=== PATIENT | male | born 1940 | race Caucasian/White ===

== ENCOUNTER 2018-03-26 07:55 | Day surgery (SDC) | payer MEDICARE, BC, OTHER ==
[2018-03-26] MEDS ORDERED: Midazolam* 1 MG/ML 2 ML VIAL (2 MG) ONE (09:26)
[2018-03-26] MEDS ORDERED: Cyclopentolate 1% OPTH.SOL* 2 ML BTL ONE (09:54)
[2018-03-26] MEDS ORDERED: Neomycin/Polymy/Dex OPTH.SUSP* MAXITROL 0.1% 5 ML ONE (09:54)
[2018-03-26] MEDS ORDERED: Lidocaine 2% EPI 1:200000 MPF*10-20 ML VIAL ONE (09:54)
[2018-03-26] MEDS ORDERED: Ketorolac 0.5% OPHTH (NF) 0.5 % 5 ML BTL ONE (09:54)
[2018-03-26] MEDS ORDERED: Phenylephrine 2.5% OPTH.SOL* 2 ML BTL ONE (09:54)
[2018-03-26] MEDS ORDERED: Povidone Iodine 5% OPTH* 30 ML BTL ONE (09:54)
[2018-03-26] MEDS ORDERED: Lidocaine 1%* 5 ML VIAL ONE (09:54)
[2018-03-26] MEDS ORDERED: acetaZOLAMIDE TAB* 250 MG ONE (09:54)
[2018-03-26 11:08] VITALS: BP 118/62
--- NOTE | 2018-03-26 21:36 | OP ---
DATE OF OPERATION: 03/26/18 [facility] DATE OF : 40 SURGEON: Ashkan Worley M.D. PREOPERATIVE DIAGNOSIS: Cataract, right eye. POSTOPERATIVE DIAGNOSIS: Cataract, right eye. OPERATIVE PROCEDURE: Extracapsular cataract extraction with intraocular lens implant, right eye. DESCRIPTION OF PROCEDURE: The patient was brought to the operating room after being given 1/2% Alcaine with epinephrine drops in the preoperative area. The eye was prepped and draped in the usual sterile fashion. Sterile drape and eyelid speculum were placed. Again, topical 1/2% Alcaine with epinephrine was given. A paracentesis incision was made at the 9 o'clock position with the No.75 blade. Clear cornea incision 2.2 x 2.2-mm was created at the 12 o'clock position starting at the anterior limbus using the 2.2-mm keratome. The anterior chamber was irrigated with 0.4 mL of 1% non-preservative intracameral lidocaine and filled with DisCoVisc. A capsulorrhexis was completed using the cystotome and the Utrata forceps. Hydrodissection was performed with balanced salt solution. The lens nucleus was removed with the Phacoemulsification handpiece without incident. Cortex was removed with the irrigation-aspiration handpiece. The capsular bag was re-inflated using DisCoVisc and an SN60WF 21.5 implant was inserted with the shooter. The irrigation-aspiration handpiece was used to remove all residual DisCoVisc. The eye was refilled with balanced salt solution and the wound checked and found to be watertight. Topical Maxitrol drops were given. [id number]/[facility] #: [id number] MTDD
== END 2018-03-26 10:52 | disposition home or self-care (01) ==
LOC: OREAST 07:55
PROVIDERS: ATTEND Specialist
DX: H25.811 Combined forms of age-related cataract, right eye (principal); B00.52 Herpesviral keratitis; R42 Dizziness and giddiness
CPT/HCPCS: A9270-GY; J2250; V2632

== ENCOUNTER 2018-04-02 08:13 | Day surgery (SDC) | payer MEDICARE, BC, OTHER ==
[~2018-04-02 08:13] MED LIST: Acetaminophen TAB* 325 MG PO PRN; Buffered Lidocaine 0.9% SYRIN* 5 ML/SYR SYRINGE INTRADERM ONE
[2018-04-02] MEDS ORDERED: Proparacaine 0.5% OPHTH.SOL* 15 ML BTL ONE (09:52)
[2018-04-02] MEDS ORDERED: Phenylephrine 2.5% OPTH.SOL* 2 ML BTL ONE (09:52)
[2018-04-02] MEDS ORDERED: Neomycin/Polymy/Dex OPTH.SUSP* MAXITROL 0.1% 5 ML ONE (09:52)
[2018-04-02] MEDS ORDERED: Ketorolac 0.5% OPHTH (NF) 0.5 % 5 ML BTL ONE (09:52)
[2018-04-02] MEDS ORDERED: acetaZOLAMIDE TAB* 250 MG ONE (09:52)
[2018-04-02] MEDS ORDERED: Lidocaine 2% EPI 1:200000 MPF*10-20 ML VIAL ONE (09:52)
[2018-04-02] MEDS ORDERED: Cyclopentolate 1% OPTH.SOL* 2 ML BTL ONE (09:52)
[2018-04-02] MEDS ORDERED: Lidocaine 1%* 5 ML VIAL ONE (09:52)
[2018-04-02] MEDS ORDERED: Povidone Iodine 5% OPTH* 30 ML BTL ONE (09:52)
[2018-04-02] MEDS ORDERED: Midazolam* 1 MG/ML 2 ML VIAL (2 MG) ONE (10:16)
[2018-04-02 10:49] VITALS: BP 128/58
--- NOTE | 2018-04-02 13:15 | OP ---
OPERATIVE NOTE: DATE OF OPERATION: 04/02/18 DATE OF : 40 SURGEON: Ashkan Worley M.D. PREOPERATIVE DIAGNOSIS: Cataract, left eye. POSTOPERATIVE DIAGNOSIS: Cataract, left eye. OPERATIVE PROCEDURE: Extracapsular cataract extraction with intraocular lens implant, left eye. PROCEDURE: The patient was brought to the operating room after being given 1/2% Alcaine with epineph rine drops in the preoperative area. The eye was prepped and draped in the usual sterile fashion. S terile drape and eyelid speculum were placed. Again, topical 1/2% Alcaine with epinephrine was given . A paracentesis incision was made at the 3 o'clock position with the No.75 blade. Clear cornea inc ision 2.2 x 2.2-mm was created at the 6 o'clock position starting at the anterior limbus using the 2. 2-mm keratome. The anterior chamber was irrigated with 0.4 mL of 1% non-preservative intracameral li docaine and filled with DisCoVisc. A capsulorrhexis was completed using the cystotome and the Utrata forceps. Hydrodissection was performed with balanced salt solution. The lens nucleus was removed wi th the Phacoemulsification handpiece without incident. Cortex was removed with the irrigation-aspira tion handpiece. The capsular bag was re-inflated using DisCoVisc and an SN60WF 21.5 implant was inse rted with the shooter. The irrigation-aspiration handpiece was used to remove all residual DisCoVisc . The eye was refilled with balanced salt solution and the wound checked and found to be watertight. Topical Maxitrol drops were given. [id number]/[facility] #: [id number]
== END 2018-04-02 10:58 | disposition home or self-care (01) ==
LOC: OREAST 08:13
PROVIDERS: ATTEND Specialist
DX: H25.812 Combined forms of age-related cataract, left eye (principal); H16.143 Punctate keratitis, bilateral; R42 Dizziness and giddiness
CPT/HCPCS: A9270-GY; J2250; V2632

== ENCOUNTER 2019-06-29 22:38 | Inpatient (IN) | payer MEDICARE, BC ==
[2019-06-29 23:03] LABS: ABS Basophils 0.1 10^3/ul (0-0.2); ABS Lymphocytes 1.1 10^3/ul (1.0-4.8); ABS Monocytes 0.7 10^3/ul (0-0.8); ABS Neutrophils 9.2 10^3/ul (1.5-7.7); Eosinophil % 0.2 %; Hematocrit 43 % (42-52); Hemoglobin 14.9 g/dL (14.0-18.0); Lymphocyte % 9.6 %; Mean Corpuscular HGB Conc 35 g/dL (31-36); Mean Corpuscular Hemoglobin 33 pg (27-31); Mean Corpuscular Volume 96 fL (80-94); Mean Platelet Volume 8.6 fL (7.4-10.4); Platelet Count 234 10^3/uL (150-450); Red Cell Distribution Width 13 % (10-15)
[2019-06-29 23:11] LABS: INR 1.04 (0.82-1.09)
[2019-06-29 23:16] LABS: ALT 13 U/L (7-52); AST 16 U/L (13-39); Albumin 4.4 g/dL (3.2-5.2); Albumin/Globulin Ratio 1.8 (1-3); Alkaline Phosphatase 92 U/L (34-104); Anion Gap 6 mmol/L (2-11); BUN/Creatinine Ratio 19.2 (8-20); Blood Urea Nitrogen 20 mg/dL (6-24); CO2 Carbon Dioxide 25 mmol/L (22-32); Calcium 9.2 mg/dL (8.6-10.3); Chloride 108 mmol/L (101-111); EGFR African American 83.4 (>60); EGFR Non-African American 68.9 (>60); Globulin 2.4 g/dL (2-4); Glucose 134 mg/dL (70-100); Potassium 3.8 mmol/L (3.5-5.0); Sodium 139 mmol/L (135-145); Total Protein 6.8 g/dL (6.4-8.9)
[2019-06-29 23:21] LABS: Troponin I 0.04 ng/mL (<0.04)
[2019-06-29] MEDS ORDERED: Aspirin 81 mg CHEW TAB* 81 MG TAB.CHEW PO ONE (23:35)
--- NOTE | 2019-06-30 00:23 | ED ---
HPI Chest Pain - HPI Summary HPI Summary: The patient is a 79 y/o M presenting to [facility] accompanied by with a chief complaint of intermittent diffuse CP radiating to the BUE onset this morning with worsening tonight with exertion. He reports the pain is alleviated by rest. He denies any SOB, nausea, or diaphoresis. He has not taken any medications to treat the pain [employer]. Currently, his symptoms are rated 6/10 in severity. He states that he has annual appointments with Dr. Child, cardiology, with EKGs and stress tests, with the last exam approximately a month ago with insignificant results. He also had a cardiac cath about 5 years ago that was normal. He has had CP before, but it hasn't presented in this fashion before. PMHx: cataracts, glasses. FHx: AL (father age 42). Nonsmoker, no EtOH, no substance use. Medications reviewed. Allergies noted. - History of Current Complaint Chief Complaint: EDChestPainROMI Time Seen by Provider: 06/29/19 23:35 Hx Obtained From: Patient Onset/Duration: Started Hours Ago - this morning, Still Present, Worse Since - tonight Timing: Lasting Hours Initial Severity: Mild Current Severity: Moderate Pain Intensity: 6 Pain Scale Used: 0-10 Numeric Chest Pain Location: Diffuse Chest Pain Radiates: Yes Chest Pain Radiates To:: Arm - BUE Character: Dull/Aching Aggravating Factor(s): Exertion Alleviating Factor(s): Rest Associated Signs and Symptoms: Positive: Chest Pain. Negative: Shortness of Breath, Diaphoresis, Nausea - Allergy/Home Medications Allergies/Adverse Reactions: Allergies Allergy/AdvReac Type Severity Reaction Status Date / Time No Known Allergies Allergy Verified 06/29/19 22:45 PMH/Surg Hx/FS Hx/Imm Hx Endocrine/Hematology History: Denies: Hx Diabetes, Hx Thyroid Disease Cardiovascular History: Denies: Hx Congestive Heart Failure, Hx Deep Vein Thrombosis, Hx Hypertension , Hx Myocardial Infarction, Hx Pacemaker/ICD Respiratory History: Denies: Hx Asthma, Hx Chronic Obstructive Pulmonary Disease (COPD), Hx Lung Cancer, Hx Pneumonia, Hx Pulmonary Embolism GI History: Denies: Hx Gall Bladder Disease, Hx Gastrointestinal Bleed, Hx Ulcer, Hx Urosepsis History: Denies: Hx Kidney Stones, Hx Renal Disease Sensory History: Reports: Hx Cataracts - BILATERAL, Hx Contacts or Glasses - READING Denies: Hx Hearing Aid Opthamlomology History: Reports: Hx Cataracts - BILATERAL, Hx Contacts or Glasses - READING Neurological History: Denies: Hx Dementia, Hx Migraine, Hx Seizures, Hx Transient Ischemic Attacks (TIA) Psychiatric History: Denies: Hx Anxiety, Hx Depression, Hx Panic Disorder, Hx Schizophrenia, Hx Bipolar Disorder - Surgical History Surgical History: Yes Surgery Procedure, Year, and Place: 1961 - PINIDAL CYST REMOVED FROM COCCYX AREA [facility]. 2009 LASER PERIPHERAL IRIDOTOMY BOTH EYES [facility] – [place]. 2010 - DACRYOCYSTITIS - OPENING A TEAR DUCT [place]. 01/30 -Rt VARICOSE VEIN [facility] Hx Anesthesia Reactions: No Infectious Disease History: No Infectious Disease History: Denies: Traveled Outside the [place] in Last 30 Days - Family History Known Family History: Positive: Cardiac Disease - [place] father age 42 - Social History Alcohol Use: None Hx Substance Use: No Substance Use Type: Reports: None Hx Tobacco Use: No Smoking Status (MU): Never Smoked Tobacco Have You Smoked in the Last Year: No Review of Systems Negative: Skin Diaphoresis Positive: Chest Pain - radiating to BUE Negative: Shortness Of Breath Negative: Nausea All Other Systems Reviewed And Are Negative: Yes Physical Exam - Summary Physical Exam Summary: General: Well-developed, Well-nourished male. Mildly anxious appearing. No acute distress. HEENT: Normocephalic, Atraumatic. Eyes: Conjuctiva normal, PERRL. Ears: TMs within normal limits. Nares: (-) discharge, (-) erythema. Oropharynx: Clear, mucous membranes moist, (-) exudates. Neck: Soft, FROM, (-) lymphadenopathy, (-) thyromegaly, (-) JVD. Cardiovascular: Normal sinus rhythm, (-) murmur. Lungs: Clear to auscultation bilaterally (-) wheezes, (-) rales, (-) rhonchi. Abdomen: Soft, non-tender, non-distended, (-) organomegaly, normal bowel sounds. Back: (-) CVA tenderness Extremities: No edema. Skin: Warm, dry, (-) rash. Neuro: Alert and oriented x3, no focal deficits. Psychiatric: Mood normal, affect normal. Triage Information Reviewed: Yes Vital Signs On Initial Exam: Initial Vitals Temp Pulse Resp BP Pulse Ox 98.7 F 87 18 169/72 100 06/29/19 22:45 06/29/19 22:45 06/29/19 22:45 06/29/19 22:45 06/29/19 22:45 Vital Signs Reviewed: Yes Diagnostics - Vital Signs Vital Signs Temp Pulse Resp BP Pulse Ox 06/30/19 00:02 68 96 06/30/19 00:01 72 150/82 96 06/29/19 22:45 98.7 F 87 18 169/72 100 - Laboratory Lab Results: Lab Results 06/29/19 06/29/19 06/29/19 Range/Units 22:52 22:52 22:52 WBC 11.0 H (3.5-10.8) 10^3/uL RBC 4.50 (4.18-5.48) 10^6 /uL Hgb 14.9 (14.0-18.0) g/dL Hct 43 (42-52) % MCV 96 H (80-94) fL MCH 33 H (27-31) pg MCHC 35 (31-36) g/dL RDW 13 (10-15) % Plt Count 234 (150-450) 10^3/uL MPV 8.6 (7.4-10.4) fL Neut % (Auto) 83.4 % Lymph % (Auto) 9.6 % [place] % (Auto) 6.3 % Eos % (Auto) 0.2 % Baso % (Auto) 0.5 % Absolute Neuts (auto) 9.2 H (1.5-7.7) 10^3/ul Absolute Lymphs (auto) 1.1 (1.0-4.8) 10^3/ul Absolute Monos (auto) 0.7 (0-0.8) 10^3/ul Absolute Eos (auto) 0.0 (0-0.6) 10^3/ul Absolute Basos (auto) 0.1 (0-0.2) 10^3/ul Absolute Nucleated RBC 0.0 10^3/ul Nucleated RBC % 0.0 INR (Anticoag Therapy) 1.04 (0.82-1.09) Sodium 139 (135-145) mmol/L Potassium 3.8 (3.5-5.0) mmol/L Chloride 108 (101-111) mmol/L Carbon Dioxide 25 (22-32) mmol/L Anion Gap 6 (2-11) mmol/L BUN 20 (6-24) mg/dL Creatinine 1.04 (0.67-1.17) mg/dL Est GFR ( Amer) 83.4 (>60) Est GFR (Non-Af Amer) 68.9 (>60) BUN/Creatinine Ratio 19.2 (8-20) Glucose 134 H (70-100) mg/dL Calcium 9.2 (8.6-10.3) mg/dL Total Bilirubin 0.40 (0.2-1.0) mg/dL AST 16 (13-39) U/L ALT 13 (7-52) U/L Alkaline Phosphatase 92 (34-104) U/L Troponin I 0.04 H* (<0.04) ng/mL Total Protein 6.8 (6.4-8.9) g/dL Albumin 4.4 (3.2-5.2) g/dL Globulin 2.4 (2-4) g/dL Albumin/Globulin Ratio 1.8 (1-3) Result Diagrams: 06/29/19 22:52 06/29/19 22:52 Lab Statement: Any lab studies that have been ordered have been reviewed, and results considered in the medical decision making process. - Radiology CXR Radiology Interpretation Completed By: ED Physician Summary of Radiographic Findings: No obvious disease. No signs of infiltrates, consolidations, or effusions. ED physician has interpreted this report. Pending official read. - EKG 2237 Cardiac Rate: NL - 91 bpm EKG Rhythm: Sinus Rhythm Summary of EKG Findings: EKG at 2237 reveals normal sinus rhythm with rate of 91 BPM, no acute changes, no ischemic changes. This EKG was reviewed and interpreted by Dr. Andre. Re-Evaluation - Re-Evaluation First Eval Re-Evaluation Time: 00:40 Comment: Patient aware of plan for admission. Chest Pain Course/Dx - Course Course Of Treatment: Pt is a 79 y/o M with cc of intermittent episodes of diffuse CP with worsening tonight secondary to minimal exertion with the pain radiating to the BUE. Denies any SOB, nausea, or diaphoresis. Last stress test about a month ago with Dr. Joseph, cardiology. Upon physical exam, the patient appears to be mildly anxious. Blood work reveals WBCs of 11.0, MCV of 96 , MCH of 33, absolute neuts of 9.2, glucose of 134, and troponin of 0.04 at 2252. In the ED course, the patient was administered 324mg PO ASA. EKG at 2237 reveals normal sinus rhythm with rate of 91 BPM, without acute or ischemic changes. Chest x-ray, per my interpretation, is negative for effusions, infiltrates, or consolidations. After discussing the pt's case with Dr. Bryant, cardiology, he recommends admission. Dr. Dumont, hospitalist, accepts the pt for admission. She will follow up with repeat troponins. Pt understands and agrees with this plan. - Diagnoses Provider Diagnoses: Chest pain, Elevated troponin - Provider Notifications Discussed Care Of Patient With: Hermelinda Dumont - hospitalist Time Discussed With Above Provider: 00:35 Instructed by Provider To: Other - Dr. Dumont accepts the patient for admission. Dr. Bryant, cardiology, aware of the patient's case. Discharge ED - Sign-Out/Discharge Documenting (check all that apply): Patient Departure - Patient accepted for admission by Dr. Dumont. Patient Received Moderate/Deep Sedation with Procedure: No - Discharge Plan Condition: Stable Disposition: ADMITTED TO [facility] Referrals: Charanjit Hernandez MD [Primary Care Provider] - - Billing Disposition and Condition Condition: STABLE Disposition: Admitted to [facility] - Attestation Statements Document Initiated by Bell: Yes Documenting Scribe: Sherri Vargas Provider For Whom Bell is Documenting (Include Credential): Dr. Yesy Andre MD Scribe Attestation: Sherri Hsu scribed for Dr. Yesy Andre MD on 06/30/19 at 0103. Scribe Documentation Reviewed: Yes Provider Attestation: The documentation as recorded by the Sherri ridley accurately reflects the service I personally performed and the decisions made by me, Dr. Yesy Andre MD Status of Scribnikki Document: Viewed
[2019-06-30 01:24] LABS: Troponin I 0.07 ng/mL (<0.04)
[2019-06-30] MEDS ORDERED: Nitroglycerin TAB 0.4 MG* 0.4 MG TAB SL PRN ×2 (02:31→14:58)
[2019-06-30] MEDS ORDERED: Acetaminophen TAB* 325 MG PO PRN (02:32)
[2019-06-30 04:38] LABS: Troponin I 0.09 ng/mL (<0.04)
--- NOTE | 2019-06-30 05:03 | HP ---
CC: Dr. Hernandez; Dr. Child * HISTORY AND PHYSICAL: DATE OF ADMISSION: 06/30/19 TIME OF EVALUATION: 1:55 a.m. PRIMARY CARE PROVIDER: Dr. Hernandez. CANVAS MARKER: Dr. Child. CHIEF COMPLAINT: Chest pressure. HISTORY OF PRESENT ILLNESS: Mr. Torres is a 79-year-old male with a past medical history of herpes simplex keratitis, transient arterial retinal occlusion, paroxysmal supraventricular tachycardia, aortic stenosis, who presents to the emergency room with complaints of chest pain. The patient states that earlier today, he started to notice exertional chest pain that he describes as a pressure in his chest that would let him know that he needed to "slow down." He states that he tried to go up a flight of stairs in his home and he had to stop because he had retrosternal pressure, 6/10, radiating to his arms. These symptoms would resolve at rest, then he would be able to continue with exertion, but these symptoms would return. He states that last night, he was playing bridge with his friends and he states that the game was very stressful for him and he started to experience the same symptoms while playing the game and then decided to come to the emergency room for further evaluation. He states that for many months, he has had symptoms with exertion that he describes as his body "telling me that I have to slow down." He states that he walk a block and he would feel short of breath, so he would slow down or rest a little and then he will be able to continue, but the first episode of chest pressure was yesterday. He saw Dr. Child for routine followup on 06/08/19 and at that time, he had no significant complaints and there were no changes to his medications and the plan was for a 1-year followup. The patient denies palpitations, shortness of breath, nausea, vomiting, diaphoresis, near syncope. PAST MEDICAL HISTORY: 1. Herpes simplex keratitis. 2. History of syncope in the past, felt to be vasovagal with no recurrence including evaluation by EP without any cardiac source. 3. Mild aortic stenosis. 4. Amaurosis fugax. 5. Paroxysmal supraventricular tachycardia. PAST SURGICAL HISTORY: 1. Remote history of pilonidal cyst removal. 2. Iridotomy of both eyes in 2009. 3. Dacryocystitis with opening of tear duct in 2010. 4. Right leg varicose vein surgery in 2011. MEDICATION LIST: 1. Acyclovir 200 mg p.o. b.i.d. 2. Vitamin C 500 mg p.o. b.i.d. 3. Aspirin 81 mg p.o. daily. 4. Cyclosporine 0.05% 1 drop to both eyes daily. 5. Lotemax 0.5% 1 drop to both eyes t.i.d. 6. Meclizine 1 dose p.o. b.i.d. as needed for dizziness. 7. Multivitamin 1 capsule p.o. daily. 8. Fish oil 1 capsule p.o. daily. 9. Systane Ultra 1 drop to both eyes t.i.d. 10. Viroptic 1% 1 drop to both eyes t.i.d. ALLERGIES: No known drug allergies. FAMILY HISTORY: Father and mother had stroke and hypertension. SOCIAL HISTORY: There is no history of tobacco, alcohol, or drug use. Surrogate decision maker is the patient's , Tanvi Torres, phone number is [phone]. REVIEW OF SYSTEMS: A 14-point review of systems was performed, and all the pertinent negatives and positive findings are in the HPI. PHYSICAL EXAMINATION GENERAL: The patient is a pleasant elderly gentleman, lying in the ED stretcher , in no acute distress. VITAL SIGNS: Temperature 98.7, heart rate is 65, respiratory rate is 16, oxygen saturation 97% on room air, blood pressure is 151/80. HEENT: Pupils are equal. Moist mucous membranes. CHEST: Breath sounds bilaterally with no added sounds. CVS: Normal S1, S2. Regular rate and rhythm with systolic murmur. ABDOMEN: Soft, nontender, nondistended. Bowel sounds present. EXTREMITIES: No edema. NEURO: He is alert and oriented x3. Able to move all 4 extremities. LABORATORY AND IMAGING DATA: The patient had a CBC that showed a WBC of 11, hemoglobin of 14.9, hematocrit of 43, platelets of 234 with 83% neutrophils. INR is 1.04. Chemistry showed a sodium of 139, potassium 3.8, chloride of 108, bicarb of 25, BUN of 20, creatinine of 1.04, glucose of 134. Calcium is 9.2. LFTs were normal. First troponin was 0.04, second troponin 0.07. EKG done on 06/29/19 at 10:37 p.m. showed sinus rhythm at 91 beats per minute with APCs, there are minimal ST depressions from V2 through V5 and those are new when compared to his prior EKG from 2011. ASSESSMENT AND PLAN: Mr. Torres is a 79-year-old male with a past medical history of herpes simplex keratitis, vasovagal syncope, paroxysmal supraventricular tachycardia, aortic stenosis, amaurosis fugax, who presented to the emergency room with complaints of exertional chest pain over the past day , but with report of exertional dyspnea for months. 1. Chest pain with no acute coronary syndrome. The patient's pattern of exertional chest pain is concerning. At the time of my interview, the patient is chest pain-free. His EKG showed some subtle ST depressions in the anterior leads and he has minimal troponin elevation now up to 0.07. The plan is to have him admitted for observation to the telemetry floor and we will continue to trend troponins once he will peak. He already received an aspirin in the emergency room. He will have nitroglycerin as needed for chest pain. I am going to check fasting lipid profile. He will be monitored on telemetry and if his troponins remain stable, he will undergo an exercise Myoview stress test. If they continue to trend up, then he will probably need a cardiac cath. As per Dr. Child's note, the patient had a negative cardiac catheterization in 2010 and his note reports a falsely positive stress test in the past, but it is unclear exactly when. 2. Herpes simplex keratitis. We will continue his acyclovir and his eye drops. 3. DVT prophylaxis. The patient has a score of 3 on the DVT Prophylaxis Assessment Guide and he will be started on subcutaneous heparin. 4. Code status is full. TIME SPENT: Approximately 50 minutes was spent with patient interview, medical records review, physical examination to complete the admission; more than half of this time was spent [id number] with the patient and coordination of care. [id number]/[facility] #: [id number] DIONTE
[2019-06-30] MEDS ORDERED: Heparin VIAL(*) 5000 UNITS/ML VIAL (FIVE THOUSAND) SUBCUT SCH (06:00)
[2019-06-30 07:09] LABS: HDL Cholesterol 40.8 mg/dL
[2019-06-30 07:10] LABS: Troponin I 0.12 ng/mL (<0.04)
[2019-06-30] MEDS ORDERED: Acyclovir* 200 MG CAP PO SCH (09:00)
[2019-06-30] MEDS ORDERED: NS 0.9% 1000 ML** 1,000 ML IV SCH ×2 (09:45→15:00)
[2019-06-30] MEDS ORDERED: diPHENhydraMINE IV* 50 MG/ML 1 ml VIAL (BENADRYL) SLOW PUSH PRN (09:45)
[2019-06-30] MEDS ORDERED: Diazepam TAB(*) 5 MG PO PRN (09:45)
[2019-06-30] MEDS: Ascorbic Acid TAB* 500 MG PO SCH ×2 (10:04→20:37)
[2019-06-30] MEDS: Vitamin THERAPEUTIC TAB PO SCH (10:04)
[2019-06-30] MEDS: Polyethyl Glycol/Propylene Gly OPHTH.SOLN BOTH EYES SCH ×3 (10:05→20:40)
[2019-06-30] MEDS: CMCS:Cyclosporine 0.05% OPHTH (NF) 0.4 ML VIAL BOTH EYES SCH (10:05)
[2019-06-30] MEDS: Acyclovir* 200 MG CAP PO SCH ×2 (10:05→20:34)
[2019-06-30] MEDS: Loteprednol 0.5% OPH.SUSP(NF) 5 ML BTL BOTH EYES SCH ×3 (10:08→20:41)
[2019-06-30] MEDS: TRIFLURIDINE 1% BOTH EYES SCH ×3 (10:08→20:41)
[2019-06-30 10:17] LABS: Troponin I 0.09 ng/mL (<0.04)
[2019-06-30] MEDS: Aspirin 81 mg CHEW TAB* 81 MG TAB.CHEW PO SCH (11:11)
--- NOTE | 2019-06-30 11:44 | CONS ---
CC: Dr. Hernandez; Dr. Child * CONSULTATION REPORT: DATE OF CONSULT: 06/30/19 ATTENDING PHYSICIAN: Dr. Oswald Bryant.* (DICTATED BY MANI GARCIA NP) PRIMARY PHYSICIAN: Dr. Hernandez. PRIMARY SLEEVE TURNER: Dr. Child. CHIEF COMPLAINT: Chest pain. HISTORY OF PRESENT ILLNESS: This is a pleasant 79-year-old male patient, who follows Dr. Child of our practice due to known history of aortic stenosis, moderate left vertebral artery stenosis, PSVT, syncope. The patient presented to [facility] on 06/29/19 at 11:36 p.m. due to ongoing complaints of chest pain. The patient states he has been in his usual state of health, although he does admit to decreased exercise capacity for the past year, specifically dyspnea on exertion with incline. He states that yesterday morning he was in his usual state of health. He decided to work in the yard and was going up and down stairs and also going up incline outside when he started to develop left-sided chest pain described as an ache. He states that episodes would resolve with rest but reoccur with exertion, specifically involving incline. Apparently at 6 p.m. last night while playing a 3-hour game of bridge with former colleagues, he started to develop resting left -sided chest pain that started to radiate down bilateral upper extremities. Pain was constant and ongoing. Thus, at 10 o'clock he decided to present to [facility] for further evaluation. While being evaluated in the emergency department, he was given aspirin, which apparently resolved pain and has not had any recurrence of pain since then. Of note, he had troponin enzyme elevation 0.04 with nonspecific ECG changes with minimal ST segment depression, thus he was admitted for chest pain, rule out ACS and troponinemia. Troponin has continued to rise. Fourth cardiac enzyme is 0.12. This morning, ECG reveals transient anterolateral T-wave depression. Again, he has not had any recurrent symptoms. Decision was made to cancel stress test and cardiology consultation was placed for evaluation of possible cardiac catheterization. The patient denies any recent episodes of dizziness, syncope. He adds that the last time he had a syncopal episode was 3 years ago and it almost always occurs when he gets up at night to go to the bathroom. In the past, he has seen Electrophysiology. He denies palpitations, sensation of heart racing, recent illness, or infection. He has otherwise been in his usual state of health. Last echocardiogram according to our outpatient medical records was in 2017. Per report at that time, LVEF was hyperdynamic at 65% to 70%. There was evidence of a sigmoid septum without significant obstruction. There is mild aortic stenosis. Mild mitral regurgitation. Mild tricuspid regurgitation. Right ventricular systolic pressure was 35. Last ischemic evaluation according to our outpatient medical records was via cardiac catheterization due to an abnormal stress test at [facility] in July 2011 at that time per report which I have reviewed. Left main was a large vessel, bifurcates to LAD and left circumflex. Left main did not show any significant stenosis. LAD, large vessel reaches the apex and wraps around the apex. Gives rise to 3 large diagonal branches and at least 2 large septal branches. There were some luminal irregularities, otherwise no significant stenosis. Left circumflex, large vessel, gives rise to one large proximal obtuse marginal branch. There was no significant stenosis. Right coronary artery, large dominant vessel. No significant stenosis. PAST MEDICAL HISTORY: 1. Transient arterial retinal occlusion. 2. Moderate left vertebral artery stenosis. 3. Mild aortic stenosis. 4. PSVT. PAST SURGICAL HISTORY: 1. Left heart catheterization in 2010 as mentioned above. 2. Pilonidal cyst removal. 3. Right lower extremity varicose vein stripping. HOME MEDICATIONS: 1. Aspirin 81 mg a day. 2. [place]-3, 1 capsule a day. 3. Multivitamin 1 capsule daily. 4. Meclizine 12.5 mg 1 dose p.o. b.i.d. p.r.n. 5. Vitamin C 500 mg p.o. b.i.d. 6. Acyclovir 200 mg p.o. b.i.d. 7. Lotemax 0.5% ophthalmic suspension 1 drop both eyes t.i.d. ALLERGIES: No known drug allergies, allergy to contrast dye or shellfish. FAMILY HISTORY: Noncontributory. SOCIAL HISTORY: The patient is . Lives at home with his . 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 He denies alcohol, drug or tobacco use. He lives a fairly sedentary lifestyle. He stays active, helping with his 8 grandchildren. REVIEW OF SYSTEMS: All systems have been reviewed and otherwise is negative except as above mentioned in the HPI. PHYSICAL EXAMINATION: The patient was seen and examined. He was sitting in chair next to bed, in no apparent distress upon entering room. He is alert and oriented x3. Vital Signs: Most recent temperature 97.4, pulse 62, respirations 18, oxygenation 100% on room air, blood pressure 150/59. HEENT: Head is atraumatic and normocephalic. Oral mucosa is moist. Tongue is midline. Neck: Supple. Trachea midline. No JVD, no carotid bruits. Cardiac: Normal S1, S2. Regular rate and rhythm. There is a grade 2/6 early systolic murmur auscultated in the left sternal border, radiating to the right sternal border, otherwise no gallop, rub. Lungs: Auscultated posteriorly. No evidence of adventitious breath sounds. Respirations nonlabored. /GI: Abdomen is soft , nontender, nondistended. Normoactive bowel sounds x4. No hepatomegaly to palpation. Peripheral Vascular: 2+ brachial and dorsalis pedis pulses palpated bilaterally and symmetrically. Skin: Intact. No evidence of jaundice, rashes, or ecchymosis appreciated. DIAGNOSTIC STUDIES/LAB DATA: Blood work reviewed. Troponin #4, 0.12. Sodium 139 , potassium 3.8, chloride 108, carbon dioxide 25, BUN 20, creatinine 1.04, glucose 134, LDL 71. INR 1.04. White count 11, hemoglobin 14.9, hematocrit 43. ECG reviewed 06/30/19; sinus rhythm, rate 62 with new anterolateral T-wave depression compared to prior ECG. Chest x-ray per radiology report, 06/29/19, no active cardiopulmonary disease. ASSESSMENT AND PLAN: 1. Non-ST elevation myocardial infarction; the patient has had decreased exercise capacity for the past 8 to 10 months. Yesterday while going up incline , he developed left-sided chest pain that resolved with resolution of activity. Later on yesterday evening, he developed resting chest pain that radiated to bilateral upper extremities. Troponin is minimally elevated, although continues to trend upward. We will continue to cycle isoenzymes. He has not had recurrent chest pain since yesterday evening after given aspirin in the emergency department. We will proceed with left heart catheterization. Procedure was reviewed with the patient including risks and benefits not limited to bleeding, infection, vessel damage, risk of contrast use, nephropathy , possibility of stroke, heart attack, , dissection, requirement of dual antiplatelet therapy, possible evaluation for bypass surgery. Patient is agreeable to proceeding with left heart catheterization. Consent will be obtained by Dr. Bryant who will be performing cardiac catheterization. The patient is on aspirin therapy. We will add low-dose Lopressor therapy and moderate dose statin therapy given LDL is near goal. 2. Known moderate left vertebral artery stenosis with history of transient arterial retinal occlusion. We will avoid Effient therapy if the patient needs dual antiplatelet therapy. He is on aspirin therapy. We will add moderate intensity statin therapy. 3. History of mild aortic stenosis, gradient stable on 2017 echocardiogram. Appears to be mild based on physical exam findings, although we will update transthoracic echocardiogram. 4. History of syncope in the past, was evaluated by Dr. Nicholson. It sounds vasovagal in nature. 5. Disposition, pending course. Dr. Bryant has personally seen and examined the patient, agreed with the above assessment and plan. Thank you for this kind consultation. Any future questions or concerns, please do not hesitate to contact our practice. MANI GARCIA NP [id number]/[facility] #: [id number] DIONTE
--- NOTE | 2019-06-30 12:00 | PN ---
Subjective Date of Service: 06/30/19 Interval History: Patient seen and examined. No chest pain at present but does endorse pain with exertion. No acute SOB, no fevers, chills or any other anginal equivalents. Discussed cancellation of lexiscan today in favor of cath given rising trops. Patient in agreement with change in plan. Objective Active Medications: Acetaminophen (Tylenol Tab*) 650 mg PO Q6H PRN PRN Reason: MILD PAIN or TEMP > 100.4 Acyclovir (Zovirax Cap*) 200 mg PO BID [facility] Last Admin: 06/30/19 10:05 Dose: 200 mg Ascorbic Acid (Vitamin C Tab*) 500 mg PO BID [facility] Last Admin: 06/30/19 10:04 Dose: 500 mg Aspirin (Aspirin 81 Mg Chew Tab*) 81 mg PO QAM [facility] Last Admin: 06/30/19 11:11 Dose: 81 mg Atorvastatin Calcium (Lipitor*) 40 mg PO 2100 [facility] Cyclosporine (Restasis 0.05% Ophth) 1 drop BOTH EYES DAILY [facility]; Protocol Last Admin: 06/30/19 10:05 Dose: 1 drop Diazepam (Valium Tab(*)) 5 mg PO ONCE PRN 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[employer] Diphenhydramine HCl (Benadryl Iv*) 50 mg SLOW PUSH ONCE PRN 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[employer] Sodium Chloride (Ns 0.9% 1000 Ml) 1,000 mls @ 75 mls/hr IV .per rate [facility] Loteprednol Etabonate (Lotemax 0.5% Oph.Susp (Nf)) 1 drop BOTH EYES TID [facility] Last Admin: 06/30/19 10:08 Dose: Not Given Meclizine HCl (Antivert Tab*) 12.5 mg PO BID PRN PRN Reason: DIZZINESS Metoprolol Tartrate (Lopressor Tab*) 12.5 mg PO Q12HR [facility] Multivitamins (Theragran Tab*) 1 tab PO DAILY [facility] Last Admin: 06/30/19 10:04 Dose: 1 tab Nitroglycerin (Nitroglycerin Tab 0.4 Mg*) 0.4 mg SL Q5M PRN PRN Reason: ANGINA Polyethyl Glycol/Propylene Glycol (Lubricant Eye Drops) 1 drop BOTH EYES TID [facility] Last Admin: 06/30/19 10:05 Dose: 1 drop Trifluridine (Viroptic 1% Opth.Xin*) 1 drop BOTH EYES TID [facility] Last Admin: 06/30/19 10:08 Dose: Not Given Vital Signs - 8 hr 06/30/19 06/30/19 07:15 11:24 Temperature 97.7 F Pulse Rate 64 Respiratory 20 18 Rate Blood Pressure 122/58 (mmHg) O2 Sat by Pulse 96 Oximetry Oxygen Devices in Use Now: None Appearance: alert, NAD Eyes: No Scleral Icterus, PERRLA Ears/Nose/Mouth/Throat: NL Teeth, Lips, Gums, Mucous Membranes Moist Neck: NL Appearance and Movements; NL JVP, Trachea Midline Respiratory: Symmetrical Chest Expansion and Respiratory Effort, Clear to Auscultation Cardiovascular: NL Sounds; No Murmurs; No JVD, RRR Abdominal: NL Sounds; No Tenderness; No Distention Extremities: No Edema, No Clubbing, Cyanosis Skin: No Rash or Ulcers Neurological: Alert and Oriented x 3, NL Gait Nutrition: Taking PO's Result Diagrams: 06/29/19 22:52 06/29/19 22:52 Additional Lab and Data: Lab Results 06/29/19 06/29/19 06/29/19 Range/Units 22:52 22:52 22:52 WBC 11.0 H (3.5-10.8) 10^3/uL RBC 4.50 (4.18-5.48) 10^6 /uL Hgb 14.9 (14.0-18.0) g/dL Hct 43 (42-52) % MCV 96 H (80-94) fL MCH 33 H (27-31) pg MCHC 35 (31-36) g/dL RDW 13 (10-15) % Plt Count 234 (150-450) 10^3/uL MPV 8.6 (7.4-10.4) fL Neut % (Auto) 83.4 % Lymph % (Auto) 9.6 % [place] % (Auto) 6.3 % Eos % (Auto) 0.2 % Baso % (Auto) 0.5 % Absolute Neuts (auto) 9.2 H (1.5-7.7) 10^3/ul Absolute Lymphs (auto) 1.1 (1.0-4.8) 10^3/ul Absolute Monos (auto) 0.7 (0-0.8) 10^3/ul Absolute Eos (auto) 0.0 (0-0.6) 10^3/ul Absolute Basos (auto) 0.1 (0-0.2) 10^3/ul Absolute Nucleated RBC 0.0 10^3/ul Nucleated RBC % 0.0 INR (Anticoag Therapy) 1.04 (0.82-1.09) Sodium 139 (135-145) mmol/L Potassium 3.8 (3.5-5.0) mmol/L Chloride 108 (101-111) mmol/L Carbon Dioxide 25 (22-32) mmol/L Anion Gap 6 (2-11) mmol/L BUN 20 (6-24) mg/dL Creatinine 1.04 (0.67-1.17) mg/dL Est GFR ( Amer) 83.4 (>60) Est GFR (Non-Af Amer) 68.9 (>60) BUN/Creatinine Ratio 19.2 (8-20) Glucose 134 H (70-100) mg/dL Calcium 9.2 (8.6-10.3) mg/dL Total Bilirubin 0.40 (0.2-1.0) mg/dL AST 16 (13-39) U/L ALT 13 (7-52) U/L Alkaline Phosphatase 92 (34-104) U/L Troponin I 0.04 H* (<0.04) ng/mL Total Protein 6.8 (6.4-8.9) g/dL Albumin 4.4 (3.2-5.2) g/dL Globulin 2.4 (2-4) g/dL Albumin/Globulin Ratio 1.8 (1-3) EKG Data: EKG INTERPRETATION Sinus rhythm.normal P axis, V-rate 60- 99 Inferior infarct, old.Q >35mS, II III aVF Abnrm T, consider ischemia, anterolateral lds.T <-0.20mV, I aVL V2-V6 Prolonged QT interval.QTc >500mS Assess/Plan/Problems-Billing Assessment: This is a 79 year old male with hx of herpes keratitis and that presents to the ED with complaints of exertional chest pain, found to have EKG changes and rising troponin levels. - Patient Problems (1) NSTEMI (non-ST elevated myocardial infarction) Code(s): I21.4 - NON-ST ELEVATION (NSTEMI) MYOCARDIAL INFARCTION SNOMED Code(s ): 80282672 Comment: - Max trop 0.12 today, cardiology consulting - EKG with changes from admission, now with noted ischemia in lateral leads - Lexiscan cancelled, plan for cardiac cath this afternoon - Continue NPO and tele - Continue ASA daily and metoprolol BID (2) Aortic stenosis Code(s): I35.0 - NONRHEUMATIC AORTIC (VALVE) STENOSIS SNOMED Code(s): 10708073 Comment: - Noted murmur on exam - No recent ECHO on file, will defer to cardiology if ECHO to be obtained (3) Herpes keratitis Code(s): B00.52 - HERPESVIRAL KERATITIS SNOMED Code(s): 9223094 Comment: - Continue daily eye drops (4) DVT prophylaxis Code(s): Z29.9 - ENCOUNTER FOR PROPHYLACTIC MEASURES, UNSPECIFIED SNOMED Code( s): 538825136 Comment: - Ambulate (5) Full code status Code(s): Z78.9 - OTHER SPECIFIED HEALTH STATUS SNOMED Code(s): 364303708 Status and Disposition: Inpatient for NSTEMI. Dispo TBD.
[2019-06-30] MEDS: Meclizine TAB* 12.5 MG PO PRN ×2 (12:26→13:26)
[2019-06-30] MEDS ORDERED: fentaNYL* 50 MCG/ML 2 ML VIAL (100 MCG VIAL) ONE (12:27)
[2019-06-30] MEDS ORDERED: Midazolam* 1 MG/ML 5 ML VIAL (5 MG) ONE (12:27)
[2019-06-30] MEDS ORDERED: Lidocaine 1% INJ* 10 MG/ML 30 ML SDV ONE (12:28)
[2019-06-30] MEDS ORDERED: VERAPAMIL 2.5 MG/ML 2 ML VIAL ** 5 mg/2 ml ONE (12:28)
[2019-06-30] MEDS ORDERED: Heparin 2 UNITS/ML IVPREMIX* 3,000 ML IV ONE (12:28)
[2019-06-30] MEDS ORDERED: Iohexol 350 (CONTRAST) 200 ML MDV IV ONE ×2 (12:28→12:29)
[2019-06-30] MEDS ORDERED: nitroGLYCERIN DRIP* 25,000 MCG/250 ML BTL ONE (12:28)
[2019-06-30] MEDS ORDERED: Heparin(*) 1000 UNIT/ML 10 ML VIAL CATH LAB IV ONE ×2 (12:28→13:58)
[2019-06-30] MEDS ORDERED: Ticagrelor* 90 MG TAB PO ONE (13:42)
[2019-06-30] MEDS ORDERED: Adenosine* 3 MG/ML VIAL ONE (13:43)
--- NOTE | 2019-06-30 15:21 | ECHO ---
*[facility]* [place] [address] Fax #: [phone] Transthoracic Echocardiogram Patient: Bud Torres : 1940 Study Date: 06/30/2019 Age: 79 Gender: M HR: 72 bpm Height: 69 in /175.3 cm BSA: 1.94 m^2 Weight: 172.6 lb /78.5 kg BMI: 25.5 kg/m^2 *Lead Person: Елена Og [facility] *Referring Physician: * Kenna Gillis *Reading Physician: * Oswald Bryant MD Indications: Myocardial Infarction. History: Chest pain. Palpitations. Aortic stenosis. Conclusions Summary: - Left ventricle: Systolic function is normal. The estimated ejection fraction is 55-60%. Wall motion is normal; there are no regional wall motion abnormalities. - Right ventricle: Systolic function is normal. - Mitral valve: There is trace regurgitation. - Aortic valve: Valve mobility is restricted. The findings are consistent with mild stenosis. There is no significant regurgitation. The valve area by the velocity-time integral method is 1.90 cm^2. The valve area by the peak velocity method is 1.80 cm^2. - Tricuspid valve: There is no significant regurgitation. - Pericardium, extracardiac: There is no significant pericardial effusion. - Pulmonary arteries: Systolic pressure can not be accurately estimated. Study data: Transthoracic echocardiogram. Procedure: Transthoracic echocardiography was performed. Image quality was adequate. Complete 2D, spectral Doppler, and color flow Doppler. Location: Bedside. Patient status: Inpatient. Patient room number: 433. Rhythm: Normal sinus rhythm. Findings Left ventricle: The cavity size is normal. Wall thickness is mildly increased. Systolic function is normal. The estimated ejection fraction is 55-60%. Wall motion is normal; there are no regional wall motion abnormalities. There is no consistent Doppler evidence of clinically significant diastolic dysfunction. Right ventricle: The cavity size is normal. Systolic function is normal. Left atrium: The atrium is mildly dilated. Right atrium: The atrium is normal in size. Mitral valve: The leaflets are normal thickness. There is no evidence of stenosis. There is trace regurgitation. Aortic valve: The valve is probably trileaflet. The leaflets are moderately thickened. Valve mobility is restricted. The findings are consistent with mild stenosis. There is no significant regurgitation. Tricuspid valve: The leaflets are normal thickness. There is no evidence of stenosis. There is no significant regurgitation. Pulmonic valve: The leaflets are normal thickness. There is no significant regurgitation. Aorta: The aortic root appears normal. The aortic arch appears normal. Pericardium: There is no significant pericardial effusion. Pulmonary arteries: Not well visualized. Systolic pressure can not be accurately estimated. Systemic veins: Inferior vena cava: The vessel is normal in size. There is (>= 50%) respiratory change in the IVC dimension. Measurements Left ventricle Value Ref Right atrium continued Value Ref WILLIAM, LAX 4.9 cm 4.2 - 5.8 SI dim/bsa, ES, 2.5 cm/m^2 1.8 - ESD, LAX 3.4 cm 2.5 - 4.0 A4C 3.0 FS, LAX 32 % 25 - 43 Estimated RAP 8 mm Hg -------- PW, ED, LAX (H) 1.1 cm 0.6 - 1.0 EF 60 % 52 - 72 Aortic valve Value Ref E', lat jenniffer, TDI (L) 6.8 cm/sec >=10.0 Jenniffer diam, ED 2.0 cm - ------- E/e', lat jenniffer, 11 Peak v, S 2.5 m/sec ---- ---- TDI VTI, S 56.0 cm -------- E', med jenniffer, TDI 12.6 cm/sec >=7.0 Mean grad, S 14.0 mm Hg - ------- E/e', med jenniffer, 6 Peak grad, S 25.0 mm Hg ---- ---- TDI BRANDY, VTI 1.90 cm^2 -------- E', avg, TDI 9.7 cm/sec BRANDY, Vmax 1.80 cm^2 ---- ---- E/e', avg, TDI 8 <=14 Mitral valve Value Ref LVOT Value Ref Peak E 0.75 m/sec -------- Diam, S 2.10 cm Peak A 0.9 m/sec -------- Area 3.5 cm^2 Decel time 216 ms -------- Peak andrea, S 1.34 m/sec Peak grad, D 2.3 mm Hg -------- VTI, S 31.0 cm Peak E/A ratio 0.8 -------- Peak grad, S 7 mm Hg Mean grad, S 4 mm Hg Pulmonic valve Value Ref SV 107 ml Peak v, S 0.83 m/sec -------- Peak grad, S 3.0 mm Hg -------- Ventricular septum Value Ref IVS, ED (H) 1.2 cm 0.6 - 1.0 Aortic root Value Ref Root diam 3.1 cm <4.1 Right ventricle Value Ref WILLIAM, LAX 2.1 cm Ascending aorta Value Ref WILLIAM minor ax, 2.3 cm 1.9 - 3.5 AAo AP diam, S 3.2 cm -------- A4C mid Aortic arch Value Ref Left atrium Value Ref Arch diam 2.7 cm -------- AP dim, ES (H) 4.70 cm 3.00 - 4.00 Decending aorta Value Ref ML dim, A4C 4.4 cm Leonardo peak andrea 1.27 m/sec -------- SI dim, A4C 5.9 cm Vol/bsa, ES, A/L (H) 35 ml/m^2 16 - 34 Inferior vena cava Value Ref Diam 2.0 cm -------- Right atrium Value Ref SI dim, ES 4.8 cm 3.4 - 5.3 ML dim, ES, A4C 3.2 cm 2.6 - 4.4 SI dim, ES, A4C 4.8 cm 3.4 - 5.3 Legend: (L) and (H) tiffany values outside specified reference range. Prepared and electronically signed by Oswald Bryant MD 06/30/2019 15:20
--- NOTE | 2019-06-30 16:35 | CATH ---
"*[facility]* [place] [address] Main: [phone] [email or web address] Cardiac Catheterization Patient: Bud Torres : 1940 Study Date: 06/30/2019 Age: 79 Gender: M HR: Height: 69 in /175.3 cm BSA: 1.97 m^2 Weight: 172.9 lb /78.6 kg BMI: 25.6 kg/m^2 Hospice Clinical Marketer: Oswald Bryant MD Ordering Physician: Kenna Gillis Referring Physician: Kenna Gillis Thuman Ashlin, --- - Left coronary angiography. - Right coronary angiography. Summary: 1. LAD: Mid-vessel lesion: There is a 70% stenosis. Mid-vessel lesion: There is a 90% stenosis. Mid-vessel lesion: There is a 60% stenosis. 2. Right coronary: Proximal vessel lesion: There is a 50% stenosis. Recommendations: Patient will go on to PCI of left anterior descending coronary with Dr. Barnett. History: Chest pain. Unstable angina. Aortic stenosis. Functional status: CCS class III (marked limitation of ordinary activity). Medications: The patient received no antianginal therapy in the last two weeks. Labs, prior tests, procedures, and surgery: Blood tests: Troponin I (pre-procedure) of 0.09 ng/ml. International normalized ratio (INR) of 1.04. Serum potassium (K) of 3.8 mEq/l. Serum sodium (Na) of 139 mEq/l. Serum creatinine (current admission) of 1.04 mg/dl. Blood urea nitrogen of 20 mg/dl. Glucose of 134 mg/dl. Platelet count of 234 th/ul. White blood cell count (WBC) of 0.01 th/ul. Red blood cell count (RBC) of 4500 th/ul. Hematocrit of 43 %. Hemoglobin (pre-procedure) of 14.9 g/dl. Study data: Study status: Cardiac cath: urgent. Location: Catheterization laboratory. 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 All available pre-procedure labs were reviewed. Height: 175.3 cm. 69 in. Weight: 78.6 kg. 172.9 lb. Body surface area: 1.97 m^2. Body mass index: 25.6 kg/m^2. Procedure: 1. Initial setup. The patient was brought to the laboratory. Surface ECG leads, blood pressure measurements, and pulse oximetric signals were monitored. A baseline seven lead ECG was recorded. A time out was observed per protocol. 2. Skin preparation. The planned puncture sites were prepped and draped in the usual sterile manner. 3. Local anesthesia. 1% lidocaine was administered. 4. Right femoral artery access. A 6.5F Merit Prelude sheath was advanced into the vessel. 5. Selective left coronary angiography. A 6F JL 4 catheter was advanced into the left coronary vessel ostium under fluoroscopic guidance. Contrast was injected. Images were obtained in multiple projections. 6. Selective right coronary angiography. A 4F JR 4 catheter was advanced into the right coronary vessel ostium under fluoroscopic guidance. Contrast was injected. Images were obtained in multiple projections. Study completion: Minimal estimated blood loss. All catheters inserted during the procedure were removed. There were no apparent complications. Administered medications: Aspirin, 81mg, PO. NaCl 0.9% , infusion , at a rate of 100 ml/hr. Contrast: Omnipaque 350 45 ml (total dose). Radiation: Fluoroscopy dose: 114.3 cGy. Discharge: The patient tolerated the procedure well and was discharged from the lab in stable condition. Findings Coronary arteries: The coronary circulation is co-dominant. Left main: LAD: Mid-vessel lesion: There is a 70% stenosis. Mid-vessel lesion: There is a 90% stenosis. Mid-vessel lesion: There is a 60% stenosis. Left circumflex: Normal, 0% stenosis. Right coronary: Proximal vessel lesion: There is a 50% stenosis. Hemodynamics: + + + |Stage description |Condition 1 -| + + + |Arterial pressure s/d (m)|125/65 (89) | + + + Prepared and electronically signed by Oswald Bryant MD 06/30/2019 16:35"
[2019-06-30 16:59] LABS: Troponin I 0.13 ng/mL (<0.04)
[2019-06-30 20:16] LABS: Troponin I 0.12 ng/mL (<0.04)
[2019-06-30] MEDS: Ticagrelor* 90 MG TAB PO SCH (20:34)
[2019-06-30] MEDS: Metoprolol Tartrate TAB* 25 MG PO SCH (20:34)
[2019-06-30] MEDS ORDERED: Atorvastatin* 40 MG TAB PO SCH (21:00)
[2019-06-30 22:17] LABS: Troponin I 0.14 ng/mL (<0.04)
[2019-07-01 06:00] LABS: ABS Basophils 0.1 10^3/ul (0-0.2); ABS Eosinophils 0.3 10^3/ul (0-0.6); ABS Lymphocytes 1.7 10^3/ul (1.0-4.8); ABS Neutrophils 6.9 10^3/ul (1.5-7.7); Eosinophil % 2.8 %; Hematocrit 39 % (42-52); Hemoglobin 13.7 g/dL (14.0-18.0); Lymphocyte % 16.9 %; Mean Corpuscular HGB Conc 35 g/dL (31-36); Mean Corpuscular Hemoglobin 33 pg (27-31); Mean Corpuscular Volume 94 fL (80-94); Mean Platelet Volume 8.9 fL (7.4-10.4); Platelet Count 217 10^3/uL (150-450); Red Blood Count 4.16 10^6 /uL (4.18-5.48); Red Cell Distribution Width 13 % (10-15); White Blood Count 9.9 10^3/uL (3.5-10.8)
[2019-07-01 06:10] LABS: BUN/Creatinine Ratio 14.3 (8-20); Calcium 8.4 mg/dL (8.6-10.3); EGFR African American 97.2 (>60); EGFR Non-African American 80.4 (>60)
[2019-07-01] MEDS: Aspirin 81 mg CHEW TAB* 81 MG TAB.CHEW PO SCH (08:26)
[2019-07-01] MEDS: Metoprolol Tartrate TAB* 25 MG PO SCH (08:26)
[2019-07-01] MEDS: Ascorbic Acid TAB* 500 MG PO SCH (08:27)
[2019-07-01] MEDS: Vitamin THERAPEUTIC TAB PO SCH (08:27)
[2019-07-01] MEDS: Ticagrelor* 90 MG TAB PO SCH (08:27)
[2019-07-01] MEDS: Acyclovir* 200 MG CAP PO SCH (08:30)
[2019-07-01] MEDS: Polyethyl Glycol/Propylene Gly OPHTH.SOLN BOTH EYES SCH (08:32)
[2019-07-01] MEDS: CMCS:Cyclosporine 0.05% OPHTH (NF) 0.4 ML VIAL BOTH EYES SCH (08:33)
--- NOTE | 2019-07-01 08:42 | PN ---
<ElisKenna - Last Filed: 07/01/19 08:34> Subjective Date of Service: 07/01/19 - NSTEMI s/p PCI to LAD Interval History: No events last night; patient denies recurrent left sided chest pain since he presented. No c/o dizziness, palpitations, sensation of heart racing, right radial access pain. Does report right femoral access pain with palpation and slight dyspnea.HE adds dyspnea is not new. Medications Active Medications: Acetaminophen (Tylenol Tab*) 650 mg PO Q6H PRN PRN Reason: MILD PAIN or TEMP > 100.4 Acyclovir (Zovirax Cap*) 200 mg PO BID [facility] Last Admin: 07/01/19 08:30 Dose: 200 mg Ascorbic Acid (Vitamin C Tab*) 500 mg PO BID [facility] Last Admin: 07/01/19 08:27 Dose: 500 mg Aspirin (Aspirin 81 Mg Chew Tab*) 81 mg PO QAM [facility] Last Admin: 07/01/19 08:26 Dose: 81 mg Atorvastatin Calcium (Lipitor*) 40 mg PO 2100 [facility] Last Admin: 06/30/19 20:34 Dose: 40 mg Cyclosporine (Restasis 0.05% Ophth) 1 drop BOTH EYES DAILY [facility]; Protocol Last Admin: 07/01/19 08:33 Dose: 1 drop Diazepam (Valium Tab(*)) 5 mg PO ONCE PRN PRN Reason: bingo caller to Certified Medical Technician Loteprednol Etabonate (Lotemax 0.5% Oph.Susp (Nf)) 1 drop BOTH EYES TID [facility] Last Admin: 06/30/19 20:41 Dose: Not Given Meclizine HCl (Antivert Tab*) 12.5 mg PO BID PRN PRN Reason: DIZZINESS Last Admin: 06/30/19 12:26 Dose: 12.5 mg Metoprolol Tartrate (Lopressor Tab*) 12.5 mg PO Q12HR [facility] Last Admin: 07/01/19 08:26 Dose: 12.5 mg Multivitamins (Theragran Tab*) 1 tab PO DAILY [facility] Last Admin: 07/01/19 08:27 Dose: 1 tab Nitroglycerin (Nitroglycerin Tab 0.4 Mg*) 0.4 mg SL Q5M PRN PRN Reason: ANGINA Polyethyl Glycol/Propylene Glycol (Lubricant Eye Drops) 1 drop BOTH EYES TID [facility] Last Admin: 07/01/19 08:32 Dose: 1 drop Ticagrelor (Brilinta*) 90 mg PO BID [facility] Last Admin: 07/01/19 08:27 Dose: 90 mg Trifluridine (Viroptic 1% Opth.Xin*) 1 drop BOTH EYES TID [facility] Last Admin: 06/30/19 20:41 Dose: Not Given Objective Vital Signs: Temp Pulse Resp BP Pulse Ox 98.3 F 60 12 131/69 94 07/01/19 04:00 07/01/19 06:01 07/01/19 06:01 07/01/19 06:00 07/01/19 06:01 Oxygen Devices in Use Now: None Appearance: Well nourished, NAD, A+O x3 cooperative with exam Ears/Nose/Mouth/Throat: NL Teeth, Lips, Gums, Mucous Membranes Moist Neck: NL Appearance and Movements; NL JVP Respiratory: Symmetrical Chest Expansion and Respiratory Effort, Clear to Auscultation Cardiovascular: - - Normal S1, S2 RRR/ frade 2/6 early systolic AV murmur. no gallop or rub Extremities: No Edema, - - right radial access site inspected non tender to palpation, no hematoma. 2+ radial pulse and ulnar pulse palpated. Right femoral site inspected no hematoma, slight tenderness to palpation. 3+right femoral pulse palpation. Skin: No Rash or Ulcers Neurological: Alert and Oriented x 3 Lines/Tubes/Other Access: Clean, Dry and Intact Peripheral IV Laboratory Results: 07/01/19 05:15 07/01/19 05:15 INR (Anticoag Therapy) 1.04 (0.82-1.09) 06/29/19 22:52 APTT 33.3 seconds (26.0-38.0) 06/30/19 12:05 Total Bilirubin 0.40 mg/dL (0.2-1.0) 06/29/19 22:52 AST 16 U/L (13-39) 06/29/19 22:52 ALT 13 U/L (7-52) 06/29/19 22:52 Alkaline Phosphatase 92 U/L (34-104) 06/29/19 22:52 Total Protein 6.8 g/dL (6.4-8.9) 06/29/19 22:52 Albumin 4.4 g/dL (3.2-5.2) 06/29/19 22:52 Globulin 2.4 g/dL (2-4) 06/29/19 22:52 Albumin/Globulin Ratio 1.8 (1-3) 06/29/19 22:52 Triglycerides 66 mg/dL 06/30/19 06:30 Cholesterol 125 mg/dL 06/30/19 06:30 LDL Cholesterol 71 mg/dL 06/30/19 06:30 HDL Cholesterol 40.8 mg/dL 06/30/19 06:30 06/29/19 06/30/19 06/30/19 22:52 00:46 03:55 Troponin I 0.04 H* 0.07 H* 0.09 H* 06/30/19 06/30/19 06/30/19 06:30 09:46 16:17 Troponin I 0.12 H* 0.09 H* 0.13 H* 06/30/19 06/30/19 19:45 21:45 Troponin I 0.12 H* 0.14 H* Laboratory Results - last 24 hr 06/29/19 06/30/19 06/30/19 22:52 09:46 12:05 WBC RBC Hgb Hct MCV MCH MCHC RDW Plt Count MPV Neut % (Auto) Lymph % (Auto) [place] % (Auto) Eos % (Auto) Baso % (Auto) Absolute Neuts (auto) Absolute Lymphs (auto) Absolute Monos (auto) Absolute Eos (auto) Absolute Basos (auto) Absolute Nucleated RBC Nucleated RBC % APTT 33.3 POC Activ Clotting Time Sodium Potassium Chloride Carbon Dioxide Anion Gap BUN Creatinine Est GFR ( Amer) Est GFR (Non-Af Amer) BUN/Creatinine Ratio Glucose Calcium Troponin I 0.09 H* Blood Type O Positive Antibody Screen Negative 06/30/19 06/30/19 06/30/19 13:54 14:08 16:17 WBC RBC Hgb Hct MCV MCH MCHC RDW Plt Count MPV Neut % (Auto) Lymph % (Auto) [place] % (Auto) Eos % (Auto) Baso % (Auto) Absolute Neuts (auto) Absolute Lymphs (auto) Absolute Monos (auto) Absolute Eos (auto) Absolute Basos (auto) Absolute Nucleated RBC Nucleated RBC % APTT POC Activ Clotting Time 227 267 Sodium Potassium Chloride Carbon Dioxide Anion Gap BUN Creatinine Est GFR ( Amer) Est GFR (Non-Af Amer) BUN/Creatinine Ratio Glucose Calcium Troponin I 0.13 H* Blood Type Antibody Screen 06/30/19 06/30/19 07/01/19 19:45 21:45 05:15 WBC RBC Hgb Hct MCV MCH MCHC RDW Plt Count MPV Neut % (Auto) Lymph % (Auto) [place] % (Auto) Eos % (Auto) Baso % (Auto) Absolute Neuts (auto) Absolute Lymphs (auto) Absolute Monos (auto) Absolute Eos (auto) Absolute Basos (auto) Absolute Nucleated RBC Nucleated RBC % APTT POC Activ Clotting Time Sodium 139 Potassium 4.0 Chloride 109 Carbon Dioxide 25 Anion Gap 5 BUN 13 Creatinine 0.91 Est GFR ( Amer) 97.2 Est GFR (Non-Af Amer) 80.4 BUN/Creatinine Ratio 14.3 Glucose 108 H Calcium 8.4 L Troponin I 0.12 H* 0.14 H* Blood Type Antibody Screen 07/01/19 05:15 WBC 9.9 RBC 4.16 L Hgb 13.7 L Hct 39 L MCV 94 MCH 33 H MCHC 35 RDW 13 Plt Count 217 MPV 8.9 Neut % (Auto) 69.5 Lymph % (Auto) 16.9 [place] % (Auto) 10.2 Eos % (Auto) 2.8 Baso % (Auto) 0.6 Absolute Neuts (auto) 6.9 Absolute Lymphs (auto) 1.7 Absolute Monos (auto) 1.0 H Absolute Eos (auto) 0.3 Absolute Basos (auto) 0.1 Absolute Nucleated RBC 0.0 Nucleated RBC % 0.0 APTT POC Activ Clotting Time Sodium Potassium Chloride Carbon Dioxide Anion Gap BUN Creatinine Est GFR ( Amer) Est GFR (Non-Af Amer) BUN/Creatinine Ratio Glucose Calcium Troponin I Blood Type Antibody Screen Diagnostic Imaging: Please refer to [facility] report for full details. *[facility]* [place] [address] Fax #: [phone] Transthoracic Echocardiogram Patient: Bud Torres : 1940 Study Date: 06/30/2019 Age: 79 Gender: M HR: 72 bpm Height: 69 in /175.3 cm BSA: 1.94 m^2 Weight: 172.6 lb /78.5 kg BMI: 25.5 kg/m^2 *Hydroelectric Systems Technician: Елена Og [facility] *Referring Physician: * Kenna Gillis *Reading Physician: * Oswald Bryant MD Indications: Myocardial Infarction. History: Chest pain. Palpitations. Aortic stenosis. Conclusions Summary: - Left ventricle: Systolic function is normal. The estimated ejection fraction is 55-60%. Wall motion is normal; there are no regional wall motion abnormalities. - Right ventricle: Systolic function is normal. - Mitral valve: There is trace regurgitation. - Aortic valve: Valve mobility is restricted. The findings are consistent with mild stenosis. There is no significant regurgitation. The valve area by the velocity-time integral method is 1.90 cm^2. The valve area by the peak velocity method is 1.80 cm^2. - Tricuspid valve: There is no significant regurgitation. - Pericardium, extracardiac: There is no significant pericardial effusion. - Pulmonary arteries: Systolic pressure can not be accurately estimated. This report is only to be considered final once signed by the Provider(s) as displayed in the "<Electronically Signed by >" field (s). Absence of a signature indicates the report is in a draft status and still needs to be finalized. In the event this document was created by someone other than the signing Provider, the individual initiating the document will be listed in the "Entered by:" or "Dictated by:" boss. EKG Data: 07/01/2019; NSR rate 67 with anterolateral TW inversion c/w recent NSTEMI Telemetry reviewed; Sinus rhythm rate 60-70's with PACs. no VPCs. Assessment/Plan #1 NSTEMI s/p PCI to LAD 07/01/2019; Denies recurrent c/o chest pain since presentation. LVEF 55-60%. He is on ASA 81/day, Brilinta 90mg Po BID and Lopressor 12.5mg PO BID, Lipitor 40mg PO QHS. Right radial access and right femoral access sites were evaluated. no hematoma. He does have noticeable diminished right radial access pulse pulses however, he states they have been more diminished compared to left side since 2010 [facility]. He may fly on 07/03/2019 however, he is aware to avoid lifting anything > 10lbs for 5-7 days and to take medications as prescribed. He will follow up with me on 07/09/2019. He has a known residual proximal RCA lesion (50%) will treat medically. #2 h/o HLD; LDL 71 thus was only started on moderate intensity statin therapy. Will need outpatient FLP/LFT in 6 weeks time. Ill order in follow up #3 h/o mild ; Peak-25, mean -14. stable he will follow up outpatient #4 h/o HTN; Now on Lopressor. Heart rate tolerating Bblocker. Goal BP < 140/90 per AHA/ACC. #5 Disposition; pending course. Patient to ambulate halls. Will likely sign off later this morning and okay discharge for later today. Will d/w Dr. Barnett. Attending: Rosario Barnett <Rosario Barnett - Last Filed: 07/01/19 11:45> Medications Active Medications: Acetaminophen (Tylenol Tab*) 650 mg PO Q6H PRN PRN Reason: MILD PAIN or TEMP > 100.4 Acyclovir (Zovirax Cap*) 200 mg PO BID [facility] Last Admin: 07/01/19 08:30 Dose: 200 mg Ascorbic Acid (Vitamin C Tab*) 500 mg PO BID [facility] Last Admin: 07/01/19 08:27 Dose: 500 mg Aspirin (Aspirin 81 Mg Chew Tab*) 81 mg PO QAM [facility] Last Admin: 07/01/19 08:26 Dose: 81 mg Atorvastatin Calcium (Lipitor*) 40 mg PO 2100 [facility] Last Admin: 06/30/19 20:34 Dose: 40 mg Cyclosporine (Restasis 0.05% Ophth) 1 drop BOTH EYES DAILY [facility]; Protocol Last Admin: 07/01/19 08:33 Dose: 1 drop Diazepam (Valium Tab(*)) 5 mg PO ONCE PRN PRN Reason: bingo caller to Certified Medical Technician Loteprednol Etabonate (Lotemax 0.5% Oph.Susp (Nf)) 1 drop BOTH EYES TID [facility] Last Admin: 06/30/19 20:41 Dose: Not Given Meclizine HCl (Antivert Tab*) 12.5 mg PO BID PRN PRN Reason: DIZZINESS Last Admin: 06/30/19 12:26 Dose: 12.5 mg Metoprolol Tartrate (Lopressor Tab*) 12.5 mg PO Q12HR [facility] Last Admin: 07/01/19 08:26 Dose: 12.5 mg Multivitamins (Theragran Tab*) 1 tab PO DAILY [facility] Last Admin: 07/01/19 08:27 Dose: 1 tab Nitroglycerin (Nitroglycerin Tab 0.4 Mg*) 0.4 mg SL Q5M PRN PRN Reason: ANGINA Polyethyl Glycol/Propylene Glycol (Lubricant Eye Drops) 1 drop BOTH EYES TID [facility] Last Admin: 07/01/19 08:32 Dose: 1 drop Ticagrelor (Brilinta*) 90 mg PO BID [facility] Last Admin: 07/01/19 08:27 Dose: 90 mg Trifluridine (Viroptic 1% Opth.Xin*) 1 drop BOTH EYES TID [facility] Last Admin: 06/30/19 20:41 Dose: Not Given Objective Vital Signs: Temp Pulse Resp BP Pulse Ox 98.3 F 71 18 105/60 97 07/01/19 04:00 07/01/19 09:00 07/01/19 10:43 07/01/19 10:43 07/01/19 09:00 Laboratory Results: 07/01/19 05:15 07/01/19 05:15 INR (Anticoag Therapy) 1.04 (0.82-1.09) 06/29/19 22:52 APTT 33.3 seconds (26.0-38.0) 06/30/19 12:05 Total Bilirubin 0.40 mg/dL (0.2-1.0) 06/29/19 22:52 AST 16 U/L (13-39) 06/29/19 22:52 ALT 13 U/L (7-52) 06/29/19 22:52 Alkaline Phosphatase 92 U/L (34-104) 06/29/19 22:52 Total Protein 6.8 g/dL (6.4-8.9) 06/29/19 22:52 Albumin 4.4 g/dL (3.2-5.2) 06/29/19 22:52 Globulin 2.4 g/dL (2-4) 06/29/19 22:52 Albumin/Globulin Ratio 1.8 (1-3) 06/29/19 22:52 Triglycerides 66 mg/dL 06/30/19 06:30 Cholesterol 125 mg/dL 06/30/19 06:30 LDL Cholesterol 71 mg/dL 06/30/19 06:30 HDL Cholesterol 40.8 mg/dL 06/30/19 06:30 06/29/19 06/30/19 06/30/19 22:52 00:46 03:55 Troponin I 0.04 H* 0.07 H* 0.09 H* 06/30/19 06/30/19 06/30/19 06:30 09:46 16:17 Troponin I 0.12 H* 0.09 H* 0.13 H* 06/30/19 06/30/19 07/01/19 19:45 21:45 10:36 Troponin I 0.12 H* 0.14 H* 0.06 H* Assessment/Plan cath sites stable. Reviewed activity etc. Ready for DC.
[2019-07-01 11:13] LABS: Troponin I 0.06 ng/mL (<0.04)
--- NOTE | 2019-07-01 12:11 | DS ---
CC: Dr. Child; Kenna Gillis NP; Dr. Oswald Bryant; Dr. Charanjit Hernandez * DISCHARGE SUMMARY: DATE OF ADMISSION: 06/30/19 DATE OF DISCHARGE: 07/01/19 FINAL DISCHARGE DIAGNOSES: 1. Non-ST elevation myocardial infarction, status post PCI to LAD. 2. Hyperlipidemia. 3. Hypertension. 4. Mild aortic stenosis. HOSPITAL COURSE: The patient presented to [facility] on 06/30/19 for chest pressure with underlying known history of paroxysmal supraventricular tachycardia and mild aortic stenosis. He had some chest pain with exertion, described as pressure. On the night of admission, his pain was 6/10 with exertion when trying to get up 1 flight of stairs. They did resolve with rest, but recur with exertion. Therefore, he re-presented to the ER. In the emergency room, he had troponin initially 0.04, followed by 0.[address] depression in V2 through V5. He was admitted to the medicine service , placed on tele. Serial cardiac enzymes were obtained. On following troponin level, it peaked at 0.14. Cardiology consultation with Dr. Oswald Bryant was obtained and cardiac catheterization was performed. It revealed 90% stenosis of the mid LAD and the case was referred to Dr. Barnett who performed PCI. He remained in the ICU post cardiac catheterization and he was seen by me today as an initial encounter. He seems symptoms-free. Denies any chest pain. Discussed the case with Dr. Barnett and reviewed recommendation from Kenna, Cardiology AUTOMOBILE ASSEMBLY SUPERVISOR and I was able to have him ambulate in the ICU with no symptoms or signs. Therefore, I deemed him stable to be released with followup recommendations per the manufacturing accountant's recommendation. PHYSICAL EXAMINATION: Temperature is 98.3, pulse 59, respiratory rate 12, satting 94%, blood pressure 131/69. General: He is awake, alert, pleasant, in no acute distress. Head and Neck: Normocephalic, atraumatic. Supple. Lungs: Clear to auscultation bilaterally. Abdomen: Positive bowel sounds, soft, nontender, nondistended. Extremities: No pedal edema. DIAGNOSTIC STUDIES/LAB DATA: He had troponin multiple initial encounter 0.04 with a peak troponin of 0.14. CBC and chemistry are fairly benign. Lipid panel : HDL 40, LDL 71. A 2-D echo 06/30/19 reveals ejection fraction 55%-60%, mild aortic stenosis with an area involved of 1.9 cm2. Cardiac cath left and right on 06/30/19 reveals mid LAD stenosis 90% with 70% lesion as well and his RCA had 50% stenosis. DISCHARGE MEDICATIONS: Resume home medications as follows: 1. Acyclovir 200 b.i.d. 2. Vitamin C b.i.d. 3. Aspirin 81 daily. 4. Lipitor 40 mg at bedtime, new prescription. 5. Resume Restasis eye drop. 6. Resume Lotemax 0.5% 1 drop t.i.d. 7. Resume meclizine 12.5 b.i.d. p.r.n. 8. Lopressor 12.5 q.12 hours, new prescription. 9. Multivitamin 1 tab daily. 10. Nitroglycerin p.r.n. sublingual. 11. New prescription for Brilinta 90 mg p.o. b.i.d. 12. Resume Viroptic 1% Ophthalmic t.i.d. 13. Resume fish oil 1000 mg daily. DISCHARGE INSTRUCTIONS: Followup with Cardiology, Kenna Gillis, on 07/09/19 at 2:45 p.m. Please call/follow up with Dr. Hernandez in 1 to 2 weeks. DISCHARGE CONDITION: Stable. DISCHARGE DISPOSITION: Home. [id number] #: [id number] MTDD
[2019-07-01 12:37] VITALS: BP 109/58
[2019-07-01] MEDS: Loteprednol 0.5% OPH.SUSP(NF) 5 ML BTL BOTH EYES SCH (13:08)
[2019-07-01] MEDS: TRIFLURIDINE 1% BOTH EYES SCH (13:08)
--- NOTE | 2019-07-02 22:28 | CATH ---
Amended report to correct date of procedure. CC: Dr. Bryant * STENT REPORT: DATE OF PROCEDURE: 06/30/19 DEVELOPMENT TECHNICAL LEAD: Dr. Bryant. PROCEDURE: Diagnostic catheterization by Dr. Bryant, see his report. LAD stent placement 2.5 x 28 drug-eluting stent covering distal 2 lesions, 2.75 x 16 drug - eluting stent covering the proximal lesion. based on IFR The remaining second lesion was stented with a 2.75 x 12 drug-eluting stent. All were post dilated with NC balloons. Right groin Mynx rn advanced closure. HISTORY: A 79-year-old male with non-ST elevation infarct, diagnostic cath by Dr. Bryant demonstrated 4 sequential LAD lesions. Angiographically, the second stenosis was at most moderate. INTERVENTIONAL MEDICATIONS: 1. Brilinta 180 mg p.o. 2. Heparin total 8000 units. GUIDING CATHETERS: 6F VL 3.5 wire, [place] IFR/FFR wire. HEMODYNAMICS: Final BP 142/71. Preintervention LAD IFR across all 4 lesions: Initial IFR 0.14. IFR post stenting of lesions 3 and 4, and 1, 0.85. IFR post stenting of lesion 4 in addition 0.9. FFR post stenting with adenosine 100 mcg IC 0.86. Angiography with diagnostic portion, see Dr. Bryant's report. LAD: There are 4 sequential stenoses in a moderate calcified LAD. The proximal stenosis is approximately 80%, followed by a 50% to 60% stenosis, which is then followed by sequential 60% to 75% stenosis. After stent placement across all 4 lesions, there is normal antegrade flow, no residual stenosis, essentially continuous stents from the first diagonal to the mid LAD, distal flow is normal. RFA. Sheath entry is apparently in the proximal SFA, this was sealed with Mynx rn advanced without complications. CONCLUSION: Successful single vessel multilesion drug-eluting stent placement with IFR guidance, excellent angiographic results. Successful Mynx rn advanced closure, right common femoral artery. [id number] #: [id number] [facility]
== END 2019-07-01 12:30 | disposition home or self-care (01) | DRG 247 ==
LOC: ED 22:38 → MEDTELE 06-30 01:59 → OBSVTOIN 06-30 12:13 → ICU 06-30 15:27
PROVIDERS: ADMIT Internal Medicine; ATTEND Internal Medicine
PROC: 027036Z Dilation of Coronary Artery, One Artery with Three Drug-eluting Intraluminal Devices, Percutaneous Approach (ICD-10-PCS; principal; 2019-06-30 12:30)
PROC: B2111ZZ Fluoroscopy of Multiple Coronary Arteries using Low Osmolar Contrast (ICD-10-PCS; 2019-06-30 12:30)
DX: I21.4 Non-ST elevation (NSTEMI) myocardial infarction (principal); B00.52 Herpesviral keratitis; I65.02 Occlusion and stenosis of left vertebral artery; I08.3 Combined rheumatic disorders of mitral, aortic and tricuspid valves; I25.10 Atherosclerotic heart disease of native coronary artery without angina pectoris; R06.00 Dyspnea, unspecified; E78.5 Hyperlipidemia, unspecified; I10 Essential (primary) hypertension; H26.9 Unspecified cataract; Z82.3 Family history of stroke; Z82.49 Family history of ischemic heart disease and other diseases of the circulatory system; Z79.82 Long term (current) use of aspirin; Z79.02 Long term (current) use of antithrombotics/antiplatelets
CPT/HCPCS: 36415; 71046; 80048; 80053; 80061; 84484; 85025; 85347; 85610; 85730; 86850; 86900; 86901; 93005; 93306; 93454; 99156; 99157; 99283; A9270-GY; C1725; C1753; C1760; C1876; C1887; C9600-LD; J0153; J1200; J1644; J2250; J3010

== ENCOUNTER 2019-12-27 07:25 | Emergency (ER) | payer MEDICARE, BC ==
--- NOTE | 2019-12-27 07:33 | UC ---
Respiratory Complaint HPI - HPI Summary HPI Summary: Patient is a 79 gentleman year old , who presents today to the urgent care with cough and congestion for past 6 days. Associated symptoms: Productive cough and sore throat Reports sick contacts- kids when they went for a 1-1/2 weeks ago in [place] . His with similar symptoms which have resolved and he develops symptoms after her. No contact with any suspected spivey virus. Denies any fever, chills, chest pain or shortness of breath . Denies any abdominal pain , nausea or vomiting , diarrhea or constipation. Patient tried Tylenol without much relief. - History of Current Complaint Stated Complaint: CONGESTION Time Seen by Provider: 12/27/19 07:28 Hx Obtained From: Patient - Allergies/Home Medications Allergies/Adverse Reactions: Allergies Allergy/AdvReac Type Severity Reaction Status Date / Time No Known Allergies Allergy Verified 12/27/19 07:37 Home Medications: Home Medications Acyclovir* [Zovirax 200 MG CAP*] 200 mg PO BID 04/13/16 [History Confirmed 12/26] Ascorbic Acid TAB* [Vitamin C TAB*] 500 mg PO BID 04/13/16 [History Confirmed 12/27/19] Aspirin 81 mg CHEW TAB* 81 mg PO QAM 04/13/16 [History Confirmed 12/27/19] Multivitamin [Multivitamins] 1 cap PO DAILY 04/13/16 [History Confirmed 12/27/19 ] [place]-3 Fatty Acids/Fish Oil [[place] 3 1,000 mg Softgel] 1 cap PO DAILY 04/13/16 [History Confirmed 12/27/19] Ticagrelor* [Brilinta 90 MG*] 90 mg PO BID #60 tab 06/30/19 [Rx Confirmed ] Nitroglycerin TAB 0.4 MG* 0.4 mg SL Q5M PRN 30 Days #30 tab 07/01/19 [Rx Confirmed 12/27/19] Atorvastatin* [Lipitor 40 MG*] 20 mg PO DAILY 12/27/19 [History Confirmed ] Cyclosporine 0.05% OPHTH (NF) [Restasis 0.05% OPHTH] 1 drop BOTH EYES DAILY 06/09 [History Confirmed 12/27/19] Loteprednol 0.5% OPH.GEL(NF) [Lotemax 0.5% OPH.GEL (NF)] 1 applic BOTH EYES .EVERY OTHER DAY 12/27/19 [History Confirmed 12/27/19] Meclizine TAB* [Antivert 12.5 TAB*] 12.5 mg PO PRN 12/27/19 [History] Metoprolol Tartrate TAB* [Lopressor TAB*] 25 mg PO DAILY 12/27/19 [History Confirmed 12/27/19] Propylene Glycol/Peg 400/Pf [Systane Ultra 0.4-0.3% Eye Drp] 3 drop BOTH EYES DAILY 12/27/19 [History Confirmed 12/27/19] PMH/Surg Hx/FS Hx/Imm Hx - Additional Past Medical History Additional PMH: Past Medical History : Hypertension, hyperlipidemia, coronary artery disease status post [place] and stent placement in June 2019, 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 Previously Healthy: Yes Other History Of: Negative For: HIV, Hepatitis B, Hepatitis C - Surgical History Surgical History: Yes Surgery Procedure, Year, and Place: 1961 - PINIDAL CYST REMOVED FROM [place], [place]. 2009 [place] [facility] [place]STIT[place]ING A TEAR [place]. 01[place]30 [place] [facility] [place] Family History Known Family History: Positive: Cardiac Disease - [place] father age 42 - Social History Alcohol Use: None Substance Use Type: None Smoking Status (MU): Never Smoked Tobacco Have You Smoked in the Last Year: No Review of Systems All Other Systems Reviewed And Are Negative: Yes Constitutional: Positive: Negative. Negative: Fever Skin: Positive: Negative Eyes: Positive: Negative ENT: Positive: Sore Throat, Nasal Discharge, Other - Congestion Respiratory: Positive: Cough - Productive. Negative: Shortness Of Breath Cardiovascular: Positive: Negative Gastrointestinal: Positive: Negative Genitourinary: Positive: Negative Motor: Positive: Negative Neurovascular: Positive: Negative Musculoskeletal: Positive: Negative Neurological/Mental Status: Positive: Negative Psychological: Positive: Negative Is Patient Immunocompromised?: No Physical Exam - Summary Physical Exam Summary: Physical Exam: Const: Appears well. No signs of apparent distress present. Alert and oriented x 3. Musculo: Walks with a normal gait. Head/Face: Atraumatic, normocephalic on inspection. Eyes: EOMI and PERRLA in both eyes. Conjunctivae clear. No discharge noted ENT: Hearing normal, TM normal appearing bilaterally, non bulging , non erythematous No tenderness to palpation on maxillary and frontal sinus. Minimal pharyngeal erythema without any exudates . Uvula is midline. No cervical or submandibular lymphadenopathy noted. Respiratory: Respirations are unlabored. Mild crepitation noted on the right lower lobe with decreased air entry . no wheezing , rhonchi or rales noted . CVS: Regular rate and Rhythm, S1S2 normal ,systolic murmur noted Extremities: Peripheral circulation is grossly normal. Pulses 2+ Abdomen : Soft non tender , nondistended , Bowel sounds present . No guarding , rebound tenderness or rigidity noted. Skin: No lesions or rash located on the upper extremities or on the lower extremities. Neuro: Cranial nerves II to XII intact, motor and sensory intact. DTR Intact bilaterally. Mood is normal. Affect is normal. Triage Information Reviewed: Yes Vital Signs Reviewed: Yes Diagnostics - Radiology No standard instances Radiology Interpretation Completed By: Radiologist - Chest Xrays: IMPRESSION: 1. No acute cardiopulmonary process by radiograph. 2. Coronary artery disease Respiratory Course/Dx - Course Course Of Treatment: During the visit today, Rapid strep test: neg Chest Xrays: IMPRESSION: 1. No acute cardiopulmonary process by radiograph. 2. Coronary artery disease We discussed the findings and I suspect viral illness and follow up with PMD if no better. Patient expressed understanding . - Differential Dx/Diagnosis Provider Diagnosis: Acute viral syndrome Discharge ED - Sign-Out/Discharge Documenting (check all that apply): Patient Departure All imaging exams completed and their final reports reviewed: Yes - Discharge Plan Condition: Stable Disposition: HOME Patient Education Materials: Viral Syndrome (ED) Referrals: Charanjit Hernandez MD [Primary Care Provider] - 2 Days Additional Instructions: Your chest x-ray and strep test was negative . Likely a viral syndrome Salt water gargles, [id number] cough medication Tylenol as needed for fever Maintain hydration Follow up with your primary care doctor in 2 days. Patients blood pressure slightly high in Urgent care today , plan follow up with PCP for better control than 4 weeks Return to Urgent care / ER if symptoms get worse. - Billing Disposition and Condition Condition: STABLE Disposition: Home
[2019-12-27 07:37] VITALS: BP 132/62
== END 2019-12-27 08:54 | disposition home or self-care (01) ==
LOC: UCEAST 07:25
DX: B34.9 Viral infection, unspecified (principal); J02.9 Acute pharyngitis, unspecified; R05 Cough; R09.89 Other specified symptoms and signs involving the circulatory and respiratory systems; I25.10 Atherosclerotic heart disease of native coronary artery without angina pectoris; I10 Essential (primary) hypertension; E78.5 Hyperlipidemia, unspecified; I25.2 Old myocardial infarction; Z95.5 Presence of coronary angioplasty implant and graft; Z79.82 Long term (current) use of aspirin; Z79.899 Other long term (current) drug therapy
CPT/HCPCS: 71046; 87651; 99212; G0463

== ENCOUNTER 2020-07-12 12:33 | Observation (INO) ==
[2020-07-12 13:35] LABS: Hematocrit 42 % (42-52); Hemoglobin 14.7 g/dL (14.0-18.0); Mean Corpuscular HGB Conc 35 g/dL (31-36); Mean Corpuscular Hemoglobin 34 pg (27-31); Mean Corpuscular Volume 97 fL (80-94); Red Blood Count 4.35 10^6 /uL (4.18-5.48); Red Cell Distribution Width 13 % (10-15)
[2020-07-12 13:37] LABS: INR 1.06 (0.82-1.09)
[2020-07-12 13:50] LABS: ALT 27 U/L (7-52); Albumin 4.4 g/dL (3.2-5.2); Albumin/Globulin Ratio 1.6 (1-3); Alkaline Phosphatase 77 U/L (34-104); BUN/Creatinine Ratio 21.4 (8-20); Blood Urea Nitrogen 22 mg/dL (6-24); CO2 Carbon Dioxide 27 mmol/L (22-32); Chloride 105 mmol/L (101-111); EGFR African American 84.1 (>60); EGFR Non-African American 69.5 (>60); Globulin 2.8 g/dL (2-4); Glucose 106 mg/dL (70-100); Sodium 138 mmol/L (135-145); Total Protein 7.2 g/dL (6.4-8.9)
[2020-07-12 14:17] LABS: ABS Basophils 0.1 10^3/ul (0-0.2); ABS Eosinophils 0.1 10^3/ul (0-0.6); ABS Lymphocytes 1.4 10^3/ul (1.0-4.8); ABS Monocytes 0.8 10^3/ul (0-0.8); ABS Neutrophils 5.7 10^3/ul (1.5-7.7); Lymphocyte % 17.1 %; Mean Platelet Volume 9.3 fL (7.4-10.4); Platelet Count 248 10^3/uL (150-450)
[2020-07-12 14:33] LABS: Anion Gap 6 mmol/L (2-11)
[2020-07-12 19:12] LABS: Potassium Redraw 3.8 mmol/L (3.5-5.0)
[2020-07-13] MEDS ORDERED: LOTEPREDNOL 0.5% BOTH EYES SCH (09:00)
[2020-07-13] MEDS ORDERED: Aminophylline 25 MG/ML VIAL ONE (10:09)
[2020-07-13] MEDS ORDERED: Regadenoson 0.4 MG/5 ML SYRINGE ONE (10:09)
[2020-07-13 15:44] VITALS: BP 119/55
== END 2020-07-13 17:49 | disposition home or self-care (01) ==
LOC: ED 12:33 → MEDTELE 12:33
PROVIDERS: ADMIT Student in an Organized Health Care Education/Training Program; ATTEND Internal Medicine

== ENCOUNTER 2021-07-26 12:17 | Observation (INO) ==
[2021-07-26 14:43] LABS: ABS Basophils 0.1 10^3/ul (0-0.2); ABS Eosinophils 0.2 10^3/ul (0-0.6); ABS Lymphocytes 1.6 10^3/ul (1.0-4.8); ABS Monocytes 0.7 10^3/ul (0-0.8); ABS Neutrophils 4.7 10^3/ul (1.5-7.7); Eosinophil % 2.7 %; Hematocrit 41 % (42-52); Hemoglobin 14.1 g/dL (14.0-18.0); Mean Corpuscular HGB Conc 34 g/dL (31-36); Mean Corpuscular Hemoglobin 33 pg (27-31); Mean Corpuscular Volume 97 fL (80-94); Mean Platelet Volume 8.6 fL (7.4-10.4); Platelet Count 215 10^3/uL (150-450); Red Blood Count 4.26 10^6 /uL (4.18-5.48); Red Cell Distribution Width 12 % (10-15); White Blood Count 7.3 10^3/uL (3.5-10.8)
[2021-07-26 14:52] LABS: INR 1.15 (0.86-1.15)
[2021-07-26 15:04] LABS: Albumin 3.9 g/dL (3.2-5.2); Albumin/Globulin Ratio 1.6 (1-3); Calcium 8.9 mg/dL (8.6-10.3); Globulin 2.5 g/dL (2-4); Potassium 4.3 mmol/L (3.5-5.0); Total Bilirubin 0.8 mg/dL (0.2-1.0); Total Protein 6.4 g/dL (6.4-8.9)
[2021-07-26 15:05] LABS: Troponin I 0.01 ng/mL (<0.03)
[2021-07-26] MEDS ORDERED: TRIFLURIDINE 1% BOTH EYES PRN (16:37)
[2021-07-26] MEDS ORDERED: CMC:Cyclosporine 0.05% OPHTH (NF) 0.4 ML VIAL BOTH EYES SCH (18:00)
[2021-07-26 19:15] LABS: Rapid COVID-19 Molecular Undetected (Undetected)
[2021-07-27] MEDS ORDERED: Perflutren Lipid Microsphere 3 ML VIAL ONE (07:36)
[2021-07-27] MEDS ORDERED: OMEGA-3 FATTY ACID 1000 mg(NF) PO SCH (09:00)
[2021-07-27] MEDS ORDERED: Vitamin THERAPEUTIC TAB PO SCH (09:00)
[2021-07-27 14:20] VITALS: BP 114/53
[2021-07-28] MEDS ORDERED: Loteprednol 0.5% OPH.SUSP(NF) 5 ML BTL BOTH EYES SCH (09:00)
== END 2021-07-27 15:30 | disposition home or self-care (01) ==
LOC: ED 12:17 → MEDTELE 12:17
PROVIDERS: ADMIT Internal Medicine; ATTEND Internal Medicine

== ENCOUNTER 2022-04-09 17:44 | Inpatient (IN) ==
[2022-04-09] MEDS ORDERED: HYDROcodone/ACETAMIN 5/325 mg TAB PO ONE (18:49)
[2022-04-09] MEDS ORDERED: Lidocaine PATCH 5% PATCH TRANSDERM ONE (18:49)
[2022-04-09] MEDS ORDERED: Morphine 2 MG/ML SYRINGE IV ONE (21:17)
[2022-04-09] MEDS ORDERED: Ondansetron 4 mg VIAL 2 MG/ML 2 ml VIAL IV ONE (21:17)
[2022-04-09 21:51] LABS: Hematocrit 43 % (42-52); Mean Corpuscular HGB Conc 35 g/dL (31-36); Mean Corpuscular Hemoglobin 33 pg (27-31); Mean Corpuscular Volume 96 fL (80-94); Platelet Count 220 10^3/uL (150-450); Red Cell Distribution Width 13 % (10-15); White Blood Count 10.5 10^3/uL (3.5-10.8)
[2022-04-09] MEDS ORDERED: Morphine 4 MG/ML VIAL (1 ml) IV ONE (22:33)
[2022-04-09 22:34] LABS: Calcium 9.1 mg/dL (8.6-10.3); Potassium 4.2 mmol/L (3.5-5.0); eGFR CKD-EPI 86.4 (>60)
[2022-04-10] MEDS ORDERED: Acetaminophen IV 1 GM/100ML 100 ML IV PRN (01:19)
[2022-04-10] MEDS: Morphine 2 MG/ML SYRINGE IV PRN ×2 (05:12→12:56)
[2022-04-10] MEDS ORDERED: Enoxaparin 40 MG/0.4 ML SYR SUBCUT SCH (06:00)
[2022-04-10] MEDS: Loteprednol 0.5% OPH.SUSP(NF) 5 ML BTL BOTH EYES SCH (09:00)
[2022-04-10] MEDS ORDERED: methylPREDNISolone SOD SUCC 40 mg/ml 1 ml VIAL IV SCH (09:00)
[2022-04-10] MEDS: Psyllium PAK PO SCH (09:18)
[2022-04-10] MEDS ORDERED: diazePAM INJ CARPUJECT 5 MG/ML SYRINGE IV PRN (09:28)
[2022-04-10] MEDS ORDERED: Ondansetron 4 mg VIAL 2 MG/ML 2 ml VIAL IV PRN (10:25)
[2022-04-10] MEDS ORDERED: Prochlorperazine 5 mg/ml 2 ml VIAL (10 mg) IV PRN (12:39)
[2022-04-11] MEDS: Psyllium PAK PO SCH (08:02)
[2022-04-11] MEDS ORDERED: Gadoteridol (CONTRAST) 279.3 MG/ML 10 ML IV ONE (14:39)
[2022-04-11] MEDS: Polyethylene Glycol 3350 17 GM PACKET PO SCH (17:10)
[2022-04-12] MEDS: NS 0.9% 1000 ml BAG 1,000 ML IV SCH ×2 (02:02→21:43)
[2022-04-12] MEDS: Polyethylene Glycol 3350 17 GM PACKET PO SCH (11:33)
[2022-04-12] MEDS: Psyllium PAK PO SCH (11:33)
[2022-04-12] MEDS: Loteprednol 0.5% OPH.SUSP(NF) 5 ML BTL BOTH EYES SCH (11:33)
[2022-04-12] MEDS ORDERED: Lidocaine 2% PF 5 ML VIAL ONE (12:41)
[2022-04-12] MEDS ORDERED: Propofol 10 MG/ML 20 ML BTL ONE ×2 (12:41→18:17)
[2022-04-12] MEDS ORDERED: Rocuronium 50 mg VIAL 10 mg/ml 5 ml VIAL (50 mg) ONE ×2 (12:42→15:54)
[2022-04-12] MEDS ORDERED: fentaNYL 100 mcg/2 ml 50 MCG/ML VIAL ONE (12:42)
[2022-04-12] MEDS ORDERED: Bupivacaine 0.25% SDV PF 10 ML VIAL INJ ONE (12:52)
[2022-04-12] MEDS ORDERED: ceFAZolin 1 GM ADVAN 1 GM ADDV.VIAL IVPB ONE (12:52)
[2022-04-12] MEDS ORDERED: Bupivacaine 0.25% SDV 30 ML ONE (12:52)
[2022-04-12] MEDS ORDERED: ceFAZolin 2 GM in NS PREMIX 2 GM/100 ML BAG IVPB ONE (13:09)
[2022-04-12 13:40] LABS: Activated Partial Thrombo Time 27.3 seconds (26.0-38.0); INR 1.12 (0.86-1.15)
[2022-04-12] MEDS ORDERED: BUPIVACAINE **LIPOSOME/PF 13.3 MG/ML (266MG/ 20ML) VIAL (RESTRICTED) INFIL ONE (14:00)
[2022-04-12] MEDS ORDERED: Dexamethasone IV 4 MG/ML VIAL 1 ml VIAL ONE (14:58)
[2022-04-12] MEDS ORDERED: Phenylephrine IV 10 MG/ML 1 ml VIAL ONE (16:03)
[2022-04-12] MEDS ORDERED: Ondansetron 4 mg VIAL 2 MG/ML 2 ml VIAL ONE (17:11)
[2022-04-12] MEDS ORDERED: Naloxone 0.4 mg VIAL 0.4 mg/ml 1 ml VIAL IV PRN (17:47)
[2022-04-12] MEDS ORDERED: fentaNYL 100 mcg/2 ml 50 MCG/ML VIAL IV PRN (17:47)
[2022-04-12] MEDS ORDERED: Ondansetron 4 mg VIAL 2 MG/ML 2 ml VIAL IV PRN (17:47)
[2022-04-12] MEDS ORDERED: Morphine 2 MG/ML SYRINGE IV PRN (18:29)
[2022-04-12] MEDS: Pantoprazole VIAL 40 MG VIAL IV SCH (20:46)
[2022-04-13 07:54] LABS: Hematocrit 38 % (42-52); Hemoglobin 13.1 g/dL (14.0-18.0); Mean Corpuscular HGB Conc 34 g/dL (31-36); Mean Corpuscular Hemoglobin 33 pg (27-31); Mean Corpuscular Volume 96 fL (80-94); Mean Platelet Volume 8.9 fL (7.4-10.4); Platelet Count 195 10^3/uL (150-450); Red Blood Count 4.01 10^6 /uL (4.18-5.48); Red Cell Distribution Width 13 % (10-15); White Blood Count 17.5 10^3/uL (3.5-10.8)
[2022-04-13 08:12] LABS: ABS Lymphocytes 1.4 10^3/ul (1.0-4.8); ABS Monocytes 1.8 10^3/ul (0-0.8); ABS Neutrophils 14.2 10^3/ul (1.5-7.7); Eosinophil % 0.1 %; Lymphocyte % 8.1 %
[2022-04-13 08:39] LABS: Potassium 4.2 mmol/L (3.5-5.0); eGFR CKD-EPI 82.5 (>60)
[2022-04-13] MEDS: Polyethylene Glycol 3350 17 GM PACKET PO SCH (09:48)
[2022-04-13] MEDS: Psyllium PAK PO SCH (09:48)
[2022-04-13] MEDS ORDERED: Heparin 5000 UNITS/ML 1 mL VIAL SUBCUT SCH (14:00)
[2022-04-13] MEDS: NS 0.9% 1000 ml BAG 1,000 ML IV SCH (18:27)
[2022-04-13] MEDS: Pantoprazole VIAL 40 MG VIAL IV SCH (20:25)
[2022-04-13] MEDS: Heparin 5000 UNITS/ML 1 mL VIAL SUBCUT SCH (20:25)
[2022-04-14] MEDS: Heparin 5000 UNITS/ML 1 mL VIAL SUBCUT SCH ×3 (05:31→21:33)
[2022-04-14 05:51] LABS: ABS Eosinophils 0.1 10^3/ul (0-0.6); ABS Lymphocytes 1.8 10^3/ul (1.0-4.8); ABS Monocytes 1.5 10^3/ul (0-0.8); ABS Neutrophils 8.2 10^3/ul (1.5-7.7); Hematocrit 36 % (42-52); Hemoglobin 12.4 g/dL (14.0-18.0); Lymphocyte % 15.7 %; Mean Corpuscular HGB Conc 34 g/dL (31-36); Mean Corpuscular Hemoglobin 33 pg (27-31); Mean Corpuscular Volume 97 fL (80-94); Mean Platelet Volume 9.3 fL (7.4-10.4); Nucleated Red Blood Cells % 0.1; Platelet Count 156 10^3/uL (150-450); Red Blood Count 3.76 10^6 /uL (4.18-5.48); Red Cell Distribution Width 13 % (10-15); White Blood Count 11.6 10^3/uL (3.5-10.8)
[2022-04-14 06:04] LABS: Calcium 7.8 mg/dL (8.6-10.3); Potassium 4.4 mmol/L (3.5-5.0); eGFR CKD-EPI 76.5 (>60)
[2022-04-14] MEDS: Psyllium PAK PO SCH (08:08)
[2022-04-14] MEDS: Polyethylene Glycol 3350 17 GM PACKET PO SCH (08:08)
[2022-04-14] MEDS: Loteprednol 0.5% OPH.SUSP(NF) 5 ML BTL BOTH EYES SCH (08:14)
[2022-04-14] MEDS: NS 0.9% 1000 ml BAG 1,000 ML IV SCH (15:40)
[2022-04-14] MEDS: Pantoprazole VIAL 40 MG VIAL IV SCH (21:41)
[2022-04-15] MEDS: Heparin 5000 UNITS/ML 1 mL VIAL SUBCUT SCH ×3 (06:09→22:23)
[2022-04-15] MEDS: Polyethylene Glycol 3350 17 GM PACKET PO SCH (09:07)
[2022-04-15] MEDS: Psyllium PAK PO SCH (09:08)
[2022-04-15] MEDS: Pantoprazole VIAL 40 MG VIAL IV SCH (22:23)
[2022-04-16 06:22] LABS: Hematocrit 36 % (42-52); Hemoglobin 12.2 g/dL (14.0-18.0); Mean Corpuscular HGB Conc 34 g/dL (31-36); Mean Corpuscular Hemoglobin 33 pg (27-31); Mean Corpuscular Volume 96 fL (80-94); Mean Platelet Volume 9.8 fL (7.4-10.4); Platelet Count 185 10^3/uL (150-450); Red Blood Count 3.73 10^6 /uL (4.18-5.48); Red Cell Distribution Width 13 % (10-15)
[2022-04-16 07:10] LABS: ABS Eosinophils 0.3 10^3/ul (0-0.6); ABS Lymphocytes 2.3 10^3/ul (1.0-4.8); ABS Neutrophils 5.4 10^3/ul (1.5-7.7); Eosinophil % 3.7 %; Lymphocyte % 25.2 %
[2022-04-16] MEDS: Psyllium PAK PO SCH (08:12)
[2022-04-16] MEDS: Polyethylene Glycol 3350 17 GM PACKET PO SCH (08:12)
[2022-04-16] MEDS: Heparin 5000 UNITS/ML 1 mL VIAL SUBCUT SCH ×3 (08:13→21:35)
[2022-04-16] MEDS: Loteprednol 0.5% OPH.SUSP(NF) 5 ML BTL BOTH EYES SCH (08:16)
[2022-04-16] MEDS: Pantoprazole VIAL 40 MG VIAL IV SCH (21:34)
[2022-04-17] MEDS: Heparin 5000 UNITS/ML 1 mL VIAL SUBCUT SCH (06:00)
[2022-04-17 07:51] VITALS: BP 117/60
[2022-04-17] MEDS: Polyethylene Glycol 3350 17 GM PACKET PO SCH (09:09)
[2022-04-17] MEDS: Psyllium PAK PO SCH (09:10)
[2022-04-17 10:13] LABS: Rapid COVID-19 Molecular Undetected (Undetected)
== END 2022-04-17 12:25 | DRG 519 ==
LOC: EDHOLD 17:44 → ED 17:44 → SUATTDRO 04-10 01:04 → MED 04-10 02:12 → SSU 04-12 20:15 → SUATTDRO 04-12 20:16
PROVIDERS: ADMIT Internal Medicine; ATTEND Internal Medicine